=== PATIENT | female | born 1975 | race Caucasian/White ===

== ENCOUNTER 2016-05-08 14:44 | Outpatient (CLI) | payer OTHER ==
[~2016-05-08] VITALS: Ht 149.9 cm; Wt 60.0 kg
[~2016-05-08 14:44] MED LIST: /CIPR75TA OR; CIPRO PO; FLAG500T OR; METHYLCELLULOSE OR; NICO21DI4 TD; SENN8.6T5 OR; VICO5TAB OR; metamucil OR
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
[2016-05-08 17:10] LABS: DIFF SLIDE NUMBER 289
[2016-05-08 17:11] LABS: BASO % 0.2 % (0.0-1.0); EOS # 0.1 K/mm3 (0.0-0.50); EOS % 0.7 % (0.0-3.0); LARGE UNSTAINED CELL # 0.3 K/mm3 (0.0-0.4); LYMPH # 1.5 K/mm3 (1.5-4.5); LYMPH % 10.2 % (24.0-44.0); MEAN CORPUSCULAR HEMOGLOBIN 30.4 pg (27.0-33.0); MEAN CORPUSCULAR HGB CONC 33.1 g/dl (32.0-36.5); MEAN CORPUSCULAR VOLUME 91.7 fl (80.0-96.0); MONO # 0.6 K/mm3 (0.0-0.8); MONO % 4.2 % (0.0-5.0); NEUTROPHILS % 82.8 % (36.0-66.0); PLATELET COUNT, AUTOMATED 378 k/mm3 (150-450); RED CELL DISTRIBUTION WIDTH 13.2 % (11.5-14.5); WHITE BLOOD COUNT 14.5 K/mm3 (4.0-10.0)
[2016-05-08 20:03] VITALS: BP 108/60
[2016-05-08 22:02] VITALS: BP 120/67
[2016-05-09 01:50] VITALS: BP 108/68
[2016-05-09 05:47] VITALS: BP 128/65
== END 2016-05-09 08:55 | disposition home or self-care (01) ==
LOC: M LDO 14:44 → M OBS 20:02 → M LDO 05-09 08:55
PROVIDERS: ATTEND Advanced Practice Midwife
DX: O42.912 Preterm premature rupture of membranes, unspecified as to length of time between rupture and onset of labor, second trimester (principal); O40.2XX0 Polyhydramnios, second trimester, not applicable or unspecified; O09.522 Supervision of elderly multigravida, second trimester; Z88.5 Allergy status to narcotic agent; Z88.8 Allergy status to other drugs, medicaments and biological substances; Z87.891 Personal history of nicotine dependence

== ENCOUNTER 2016-05-11 05:31 | Inpatient (IN) | payer OTHER ==
[~2016-05-11] VITALS: Ht 149.9 cm; Wt 59.0 kg
[2016-05-11] VITALS (10 sets, daily range): BP systolic 101–118; BP diastolic 54–70
[2016-05-11] MEDS ORDERED: BUTORPHANOL 2 MG/ML INJ (J0595) IV ONE ×2 (08:00→11:30)
[2016-05-11] MEDS ORDERED: PROMETHAZINE INJ 25 MG/ML VIAL (J2550) IV ONE ×2 (08:00→11:30)
[2016-05-11 08:49] LABS: BASO % 0.1 % (0.0-1.0); EOS # 0.1 K/mm3 (0.0-0.50); EOS % 0.6 % (0.0-3.0); LARGE UNSTAINED CELL # 0.2 K/mm3 (0.0-0.4); LYMPH # 1.4 K/mm3 (1.5-4.5); LYMPH % 6.1 % (24.0-44.0); MEAN CORPUSCULAR HEMOGLOBIN 30.2 pg (27.0-33.0); MEAN CORPUSCULAR HGB CONC 32.7 g/dl (32.0-36.5); MEAN CORPUSCULAR VOLUME 92.3 fl (80.0-96.0); MONO % 4.8 % (0.0-5.0); NEUTROPHILS # 17.7 K/mm3 (1.8-7.7); NEUTROPHILS % 87.4 % (36.0-66.0); PLATELET COUNT, AUTOMATED 413 k/mm3 (150-450); RED CELL DISTRIBUTION WIDTH 13.4 % (11.5-14.5); WHITE BLOOD COUNT 20.2 K/mm3 (4.0-10.0)
[2016-05-11 08:57] LABS: INR 0.96
[2016-05-11] MEDS ORDERED: PRENATAL VITAMIN TAB PO SCH (09:00)
[2016-05-11] MEDS ORDERED: OXYTOCIN 30 UNITS IN 0.9% NaCl 500ML IV BAG (J2590) As Ordered ONE (12:24)
[2016-05-11] MEDS: OXYTOCIN DRIP 30 UNITS in APPROPRIATE DILUENT 1 EA IV SCH ×2 (12:27→14:18)
[2016-05-11] MEDS ORDERED: AMPICILLIN SOD/SULBACTAM SOD 3 GM in D5W MINI-BAG PLUS 100 ML IV SCH (15:00)
[2016-05-11] MEDS ORDERED: MORPHINE 10 MG/ML 1ML VIAL IV ONE (15:15)
[2016-05-11] MEDS ORDERED: KETOROLAC 60 MG/2 ML VIAL (J1885) As Ordered ONE (16:22)
[2016-05-11] MEDS ORDERED: fentaNYL 100 MCG/2 ML INJECTION (J3010) As Ordered ONE (16:22)
[2016-05-11] MEDS ORDERED: dexameTHASONE 4 MG/ML 1ML VIAL (J1100) As Ordered ONE (16:22)
[2016-05-11] MEDS ORDERED: ONDANSETRON 4MG/2ML VIAL (J2405) As Ordered ONE (16:22)
[2016-05-11] MEDS ORDERED: LIDOCAINE 2% INJ 100 MG/5 ML SYRINGE As Ordered ONE (16:22)
[2016-05-11] MEDS ORDERED: MIDAZOLAM INJ 2 MG/2 ML VIAL (J2250) As Ordered ONE (16:22)
[2016-05-11] MEDS ORDERED: SUCCINYLCHOLINE 100 MG/5 ML SYRINGE (J0330) As Ordered ONE (16:22)
[2016-05-11] MEDS ORDERED: PROPOFOL 200 MG/20 ML VIAL As Ordered ONE (16:22)
[2016-05-11] MEDS ORDERED: PHENYLephrine HCL 500 MCG/5 ML (100MCG/ML) SYRINGE (J2370) As Ordered ONE (16:23)
[2016-05-11] MEDS ORDERED: OXYTOCIN INJ 10 UNITS/ML VIAL (J2590) As Ordered ONE (16:23)
[2016-05-11] MEDS ORDERED: LR 1,000 ML IV SCH ×3 (16:54→17:15)
[2016-05-11] MEDS ORDERED: MEASLES,MUMPS,RUBELLA VACCINE INJ (MMR-II) (90707) SC SCH (17:00)
[2016-05-11] MEDS ORDERED: PROMETHAZINE INJ 25 MG/ML VIAL (J2550) IV PRN (17:00)
[2016-05-11] MEDS ORDERED: ONDANSETRON 4MG/2ML VIAL (J2405) IV PRN ×2 (17:00→17:15)
[2016-05-11] MEDS ORDERED: DOCUSATE SODIUM 100 MG CAP PO PRN (17:00)
[2016-05-11] MEDS ORDERED: METHYLERGONOVINE MALEATE 0.2 MG TAB PO PRN (17:00)
[2016-05-11] MEDS ORDERED: PERCOCET 5MG/325MG TAB PO PRN ×2 (17:00)
[2016-05-11] MEDS ORDERED: RHOGAM 300 MCG (1500 IU) INJ (J2790) IM SCH (17:00)
[2016-05-11] MEDS ORDERED: MEPERIDINE INJ 25 MG/ML VIAL (J2175) IV PRN (17:15)
[2016-05-11] MEDS ORDERED: fentaNYL 100 MCG/2 ML INJECTION (J3010) IV PRN (17:15)
[2016-05-11] MEDS ORDERED: NALBUPHINE HCL 10 MG/ML AMP (J2300) IV PRN (17:15)
[2016-05-11] MEDS: AMPICILLIN SOD/SULBACTAM SOD 3 GM in D5W MINI-BAG PLUS 100 ML IV SCH (21:02)
[2016-05-11] MEDS: KETOROLAC 30 MG/ML VIAL (J1885) IV SCH (21:57)
[2016-05-12] MEDS: AMPICILLIN SOD/SULBACTAM SOD 3 GM in D5W MINI-BAG PLUS 100 ML IV SCH (03:01)
[2016-05-12] MEDS: KETOROLAC 30 MG/ML VIAL (J1885) IV SCH (04:00)
--- NOTE | 2016-05-12 06:44 | RO ---
DATE OF PROCEDURE: 05/11/2016 PREOPERATIVE DIAGNOSES: 1. Retained placenta. 2. hemorrhage (500 mL estimated blood loss). 3. Status post previable at 21 +2 weeks. 4. Chorioamnionitis. POSTOPERATIVE DIAGNOSES: 1. Retained placenta. 2. hemorrhage (500 mL estimated blood loss). 3. Status post previable at 21 +2 weeks. 4. Chorioamnionitis. PROCEDURE: 1. Instrument extraction of retained placenta. 2. Suction, dilation and curettage. SURGEON: Dhaval Godoy DO CUSTOMER ASSISTANT: Gabriella Dixon CNM ANESTHESIA: General endotracheal. SPECIMEN SENT TO PATHOLOGY: Large fragments of placenta. ESTIMATED BLOOD LOSS: 500 mL. FLUIDS REPLACED: 1 liter lactated Ringer's. DRAINS: 500 mL urine output via in-and-out catheter. COMPLICATIONS: None. IV UTEROTONICS: Pitocin 30 units in 1 liter of normal saline. PREOPERATIVE ANTIBIOTICS: Unasyn 3 grams IV times one. INTRAOPERATIVE FINDINGS: 1. Placenta removed in large fragments. 2. At the conclusion of the case, a there was a thin homogeneous endometrial stripe via transabdominal sonography. The endometrial stripe was followed from the fundus to the cervix. Pest Control Worker Helper images were printed and placed in the patient's chart. INDICATION: The patient is a 41-year-old, (G) 4, now para (P) 3-1-0-3. She was admitted at 21 weeks and 2 days with a diagnosis of previable, prelabor, rupture of membranes dating back to the original ROM date of 05/01/2016. She was undergoing expectant management and arrived to the hospital earlier today with a complaint of persistent, frequent uterine contractions. She denied any fever or vaginal bleeding at the time of her initial presentation. Her vitals were normal/stable, afebrile. As the period of observation ensued, the patient continued to have significant uterine cramping requiring IV pain medications. This prompted a sterile speculum exam. The sterile speculum exam revealed that the head and shoulders were slightly beyond the cervical os. The cervix was noted to be about 4-5 cm dilated. No brisk bleeding was noted. However, the patient did have pink frothy discharge. Given this finding, the patient was offered augmentation of labor given that delivery was inevitable and imminent. Patient desired to expedite delivery. IV Pitocin was administered. Shortly thereafter, the baby delivered with ease with no dystocia. The third stage of labor was complicated by a retained placenta. After an initial effort to actively manage the third stage of labor via Pitocin administration and light traction on the cord, the placenta did not deliver. We proceeded for another hour and half with expectant management. After two hours from delivery, there was no delivery of the placenta. The patient was given IV pain medications. A sterile speculum was placed into the vagina while the patient was in the low lithotomy position. The placenta was noted to be at the level of the cervix. Bierer forceps were placed transcervically under ultrasound guidance to grasp the placenta and to attempt to remove it. The patient did not tolerate this attempt. Her pain level was intolerable. The patient requested that I stop proceeding while she could feel pain. She requested to go under anesthesia for the remainder of the removal of the placenta. I counseled the patient on risks, benefits, indications, alternatives of curettage and instrument extraction of the placenta under anesthesia and the patient agreed to proceed in that fashion. Informed consent was obtained. DESCRIPTION OF PROCEDURE: The patient was urgently transferred to the main operating room (OR) with an IV running. A low level bleeding was noted at this point. The patient had only lost about 100 mL of blood. She was transferred to the main OR room, placed on operating table in dorsal supine position where general anesthesia was administered without any difficulty. She was placed in a high lithotomy position. Time-out was performed per protocol. She was prepared and draped in normal sterile fashion. The bladder was drained with a sterile in-and-out catheter. An Auvard weighted speculum was placed in the posterior vagina. A Mcmahon retractor was placed in the anterior vagina with good visualization of the cervix. The anterior lip of the cervix was grasped with ring forceps and downward traction was applied. Another pair of ring forceps was used to grasp the placenta and downward traction was applied. The placenta started to be removed and it started to detach from the uterus. The large placental chunks were removed with the ring forceps until it was felt that the entire placenta had been removed. Once this was accomplished, a bimanual massage was performed and intrauterine sweep was performed and I could not palpate any large chunks of placenta. A transabdominal ultrasound was performed to confirm the entire removal of the placenta. The transabdominal sonography revealed a thin homogeneous endometrial stripe from fundus to cervix. There was no evidence of retained products of conception. There was brisk bleeding from the uterus at this point. The uterus was noted to be slightly atonic. Uterotonics via IV Pitocin was administered by Dr. Lopez. After allowing the uterotonics some time to take effect, the uterine tone improved and uterine bleeding significantly improved. The cervix was inspected and noted to be completely intact and hemostatic. A size #7 Vacurette was placed transcervically into the intrauterine cavity and suction was applied with minimal tissue and blood return. The Vacurette was removed. Minimal bleeding from the cervical os was noted. All instruments had been removed from the vagina. Sponge, lap, needle and instrument counts were correct. The patient tolerated the entire procedure well. She was transferred to the postanesthesia care unit (PACU) in good and stable condition. CLEO
[2016-05-12 07:30] LABS: BASO % 0.1 % (0.0-1.0); EOS # 0.1 K/mm3 (0.0-0.50); EOS % 0.6 % (0.0-3.0); LARGE UNSTAINED CELL # 0.2 K/mm3 (0.0-0.4); LARGE UNSTAINED CELL % 1.1 % (0.0-4.0); LYMPH # 1.9 K/mm3 (1.5-4.5); LYMPH % 11.2 % (24.0-44.0); MEAN CORPUSCULAR HEMOGLOBIN 30.4 pg (27.0-33.0); MEAN CORPUSCULAR HGB CONC 32.6 g/dl (32.0-36.5); MEAN CORPUSCULAR VOLUME 93.3 fl (80.0-96.0); MONO # 0.6 K/mm3 (0.0-0.8); MONO % 3.9 % (0.0-5.0); NEUTROPHILS # 12.8 K/mm3 (1.8-7.7); NEUTROPHILS % 82.9 % (36.0-66.0); PLATELET COUNT, AUTOMATED 371 k/mm3 (150-450); RED CELL DISTRIBUTION WIDTH 13.6 % (11.5-14.5); WHITE BLOOD COUNT 15.4 K/mm3 (4.0-10.0)
[2016-05-12] MEDS ORDERED: IBUP-1114 PO (08:17)
--- NOTE | 2016-05-12 08:17 | DSES ---
DATE OF ADMISSION: 05/11/2016 DATE OF DISCHARGE: 05/12/2016 DISCHARGE DIAGNOSIS: premature rupture of membranes (PPROM) and spontaneous vaginal delivery of previable fetus at 21-2/7 weeks gestation, stable condition. day #1. HISTORY: Leah is a 41-year-old 4, para 3-1-0-3 who was admitted to labor and delivery with prior diagnosis of PPROM at 19-1/7 weeks gestation. Expectant management had been employed and she arrived to labor and delivery with progression to active labor approximately 4 cm dilated. Her labor was augmented with IV Pitocin and she delivered a female on 05/11/2016 at 1328 weighing 362 grams. Comfort care was provided immediately to the previable . Time of was 1716 on 05/11/2016. She did undergo a dilation and curettage (D C) for retained placenta in the main operating room, surgeon Dr. Alfred Godoy. There is a notation of her having a temperature of 100.6 temporal which is actually 99.6 temperature. She was given several doses of Unasyn and has been afebrile for the majority of her admission. PLAN: Per consult with Dr. Fuentes, he has recommended the patient be discharged home today. I did review discharge instructions that included breast care, michi care, activity and lifting, access to care, pelvic rest and danger signs to report. She currently has an appointment at the center tomorrow on 05/13/2016 and plans on keeping that appointment. I did recommend that she follow up with [facility] for 2-week visit as well as a 6-week visit or she may continue her care at the center. medications just include [id number] ibuprofen 800 mg by mouth every 8 hours for pain and discomfort. The patient is in agreement and all of her questions were answered. CLEO
[2016-05-13] MEDS ORDERED: IBUPROFEN 800 MG TAB PO SCH
== END 2016-05-12 09:30 | disposition home or self-care (01) | DRG 767 ==
LOC: M LDO 05:31 → M LDI 11:48
PROVIDERS: ADMIT Obstetrics & Gynecology; ATTEND Obstetrics & Gynecology
PROC: 10E0XZZ Delivery of Products of Conception, External Approach (ICD-10-PCS; 2016-05-11)
PROC: 10D17ZZ Extraction of Products of Conception, Retained, Via Natural or Artificial Opening (ICD-10-PCS; principal; 2016-05-11 15:40)
DX: O60.12X0 Preterm labor second trimester with preterm delivery second trimester, not applicable or unspecified (principal); O41.1220 Chorioamnionitis, second trimester, not applicable or unspecified; O72.2 Delayed and secondary postpartum hemorrhage; Z37.0 Single live birth; Z3A.21 21 weeks gestation of pregnancy; O09.522 Supervision of elderly multigravida, second trimester; O42.112 Preterm premature rupture of membranes, onset of labor more than 24 hours following rupture, second trimester

== ENCOUNTER 2018-01-03 13:05 | Emergency (ER) | payer OTHER ==
[2018-01-03 14:20] LABS: BASO # 0.1 10^3/uL (0.0-0.2); BASO % 0.6 % (0.0-1.0); EOS # 0.1 10^3/uL (0.0-0.50); EOS % 1.4 % (0.0-3.0); HEMOGLOBIN 13.5 g/dl (12.0-15.5); IMMATURE GRANULOCYTE % 0.5 % (0-3.0); LYMPH # 2.1 10^3/uL (1.5-4.5); LYMPH % 24.3 % (24.0-44.0); MEAN CORPUSCULAR HEMOGLOBIN 27.6 pg (27.0-33.0); MEAN CORPUSCULAR HGB CONC 32.1 g/dl (32.0-36.5); MEAN CORPUSCULAR VOLUME 85.9 fl (80.0-96.0); MONO # 0.7 10^3/uL (0.0-0.8); MONO % 8.1 % (0.0-5.0); NEUTROPHILS # 5.5 10^3/uL (1.8-7.7); NEUTROPHILS % 65.1 % (36.0-66.0); PLATELET COUNT, AUTOMATED 487 10^3/uL (150-450); RED BLOOD COUNT 4.89 10^6/uL (4.00-5.40); RED CELL DISTRIBUTION WIDTH 14.6 % (11.5-14.5); WHITE BLOOD COUNT 8.4 10^3/uL (4.0-10.0)
[2018-01-03 14:26] LABS: ANION GAP 7 MEQ/L (8-16); BLOOD UREA NITROGEN 8 MG/DL (7-18); CALCIUM LEVEL 9.1 MG/DL (8.5-10.1); CARBON DIOXIDE LEVEL 27 MEQ/L (21-32); CHLORIDE LEVEL 107 MEQ/L (98-107); CPK CREATINE PHOSPHOKINASE 113 U/L (26-192); CREATININE FOR GFR 0.73 MG/DL (0.55-1.30); GLOMERULAR FILTRATION RATE > 60.0 (>58); GLUCOSE, FASTING 92 MG/DL (70-100); MB/CK RELATIVE INDEX 0.97 (< OR =4); POTASSIUM SERUM 4.1 MEQ/L (3.5-5.1); SODIUM LEVEL 141 MEQ/L (136-145); THYROID STIMULATING HORMONE 0.528 uIU/ML (0.358-3.740); TROPONIN I < 0.02 NG/ML (< 0.10)
[2018-01-03 15:12] LABS: ESTIMATED AVERAGE GLUCOSE 114 MG/DL (60-110); HEMOGLOBIN A1c 5.6 %
== END 2018-01-03 16:08 | disposition home or self-care (01) ==
LOC: M ED 13:05
DX: R07.89 Other chest pain (principal); F41.0 Panic disorder [episodic paroxysmal anxiety]
CPT/HCPCS: 71045

== ENCOUNTER → 2018-09-30 | Outpatient (REF) | payer OTHER ==
[~2018-09-30] MED LIST changes: +IBUP-1114 PO
[2018-10-06 14:31] LABS: HPV HYBRID CAPTURE II Negative (Negative)
== END ==
LOC: M LAB LCGH 13:06
PROVIDERS: ATTEND Family Medicine
DX: Z12.4 Encounter for screening for malignant neoplasm of cervix (principal)

== ENCOUNTER → 2019-12-29 | Outpatient (CLI) | payer BC ==
--- NOTE | 2019-12-30 10:54 | REPMRS ---
Patient History The patient states she had a clinical breast exam in 12/2018 No known family history of cancer. 3D TOMOSYNTHESIS WAS PERFORMED. [facility] lifetime risk for breast cancer is 9.4%. Volpara breast density b. Digital Woman Screen Mammo: December 29, 2019 - Exam #: [id number] Bilateral CC and MLO view(s) were taken. Technologist: Gala Hamilton, Technologist Prior study comparison: 2013, bilateral digital mammo screening bilat, performed at [facility]. FINDINGS: There are scattered fibroglandular densities. There has been no change in the appearance of the mammogram from the prior studies. There is a mild amount of residual fibroglandular tissue which is fairly symmetric. There is no interval development of dominant mass, architectural distortion, or clustered microcalcification suggestive of malignancy. Assessment: BI-RADS/ACR category 1 mammogram. Negative Mammogram. Recommendation Routine screening mammogram in 1 year (for women over age 40). This mammogram was interpreted with the aid of an FDA-approved computer-aided dectection system. Electronically Signed By: Dayo Forbes MD 12/30/19 [id number]
== END ==
LOC: M WHC 09:02
PROVIDERS: ATTEND Plastic Surgery Surgery of the Hand
DX: Z12.31 Encounter for screening mammogram for malignant neoplasm of breast (principal); N62 Hypertrophy of breast

== ENCOUNTER 2020-04-01 12:39 | Emergency (ER) | payer BC ==
[~2020-04-01] VITALS: Ht 149.9 cm; Wt 61.9 kg
--- OUTSIDE RECORDS SUMMARY | 2020-04-01 12:45 | CCD | Continuity of Care Document ---
Author Author Leah BECKER PA-C Organization Unknown Address [address] [place] [address] Phone [phone] Care Team Providers Care Library Media Specialist Name Role Phone Iraida Ford [phone] Problems Description No Information Available Social History Type Date Description Comments Sex Unknown ETOH Use Denies alcohol use Tobacco Use Start: Unknown End: Unknown Patient is a former smoker quit 11/2014 Recreational Drug Use Denies Drug Use Exercise Type/Frequency Does not exercise NACHO: 09/19/2016 Estimated Date of Delivery Based on Final NACHO Allergies, Adverse Reactions, Alerts Active Allergies Reaction Severity Comments Date NKDA 01/21/2016 NKFA 02/18/2016 NKEA 02/18/2016 Medications Active Medications SIG Qnty Indications Ordering Provide r Date Amoxicillin 500mg Capsules 2 caps by mouth every 8 hours x 5 days 42caps H65.191 Vinicio Becker PA-C 10/2019 Butalbital/Acetaminophen/Caffeine 50-300-40mg Capsules one tab by mouth Q 6 hrs prn 30caps Yeny Cano M.D. 03/11/2016 Vitamin Tablets 1 by mouth every day Unknown Claritin 10 MG 1 tab po daily Unknown Immunizations Description No Information Available Vital Signs Date Vital Result Comment 01/18/2020 12:15pm Heart Rate 70 /min Body Temperature 97.8 F Respiratory Rate 18 /min O2 % BldC Oximetry 94 % 04/18/2016 1:11pm BP Systolic 126 mmHg BP Diastolic 80 mmHg Heart Rate 93 /min Weight 140.00 lb Weight 63.504 kg Height 60 inches 5'0" BMI (Body Mass Index) 27.3 kg/m2 BSA (Body Surface Area) 1.60 m2 Results Description No Information Available Procedures Description No Information Available Medical Devices Description No Information Available Encounters Description No Information Available Assessments Description No Information Available Plan of Treatment No Information Available Functional Status Description No Information Available Mental Status Description No Information Available Referrals Description No Information Available
--- OUTSIDE RECORDS SUMMARY | 2020-04-01 12:45 | CCD ---
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 Unavailable Unavailable Garcia II, Vonda White M.D. Unavailable Unavailable Garcia II, Vonda White M.D. Unavailable Unavailable Garcia II, Vonda White M.D. Unavailable Unavailable Garcia II, Vonda White M.D. Unavailable Unavailable Garcia II, Vonda White M.D. Unavailable Unavailable Garcia II, Vonda White M.D. Unavailable Unavailable Garcia II, Vonda White M.D. Unavailable Unavailable Garcia II, A Christopher Hatfield Unavailable Unavailable Garcia II, A Christopher Hatfield Unavailable Unavailable Garcia II, A Christopher Hatfield Unavailable Unavailable Garcia II, A Christopher Hatfield Unavailable Unavailable Garcia II, A Christopher Hatfield Unavailable Unavailable Garcia II, A Christopher Hatfield Unavailable Unavailable Garcia II, A Christopher Hatfield Unavailable Unavailable Garcia II, A Christopher Hatfield Unavailable Unavailable Garcia II, A Christopher Hatfield Unavailable Unavailable Garcia II, A Christopher Hatfield Unavailable Unavailable Garcia II, A Christopher Hatfield Unavailable Unavailable Garcia II, A Christopher Hatfield Unavailable Unavailable Garcia II, A Christopher Hatfield Unavailable Unavailable Garcia II, A Christopher Hatfield Unavailable Unavailable Garcia II, A Christopher Hatifeld Unavailable Unavailable Garcia II, A Christopher Hatfield Unavailable Unavailable Garcia II, A Christopher Hatfield Unavailable Unavailable Garcia II, A Christopher Hatfield Unavailable Unavailable Garcia II, A Christopher Hatfield Unavailable Unavailable Garcia II, A Christopher Hatfield Unavailable Unavailable Garcia II, A Christopher Hatfield Unavailable Unavailable Garcia II, A Christopher Hatfield Unavailable Unavailable Garcia II, A Christopher Hatfield Unavailable Unavailable Garcia II, A Christopher Hatfield Unavailable Unavailable Garcia II, A Christopher Hatfield Unavailable Unavailable Garcia II, A Christopher Hatfield Unavailable Unavailable Garcia II, A Christopher Hatfield Unavailable Unavailable Garcia II, A Christopher Hatfield Unavailable Unavailable Garcia II, A Christopher Hatfield Unavailable Unavailable Garcia II, A Christopher Hatfield Unavailable Unavailable Garcia II, A Christopher Hatfield Unavailable Unavailable Garcia II, A Christopher Hatfield Unavailable Unavailable Garcia II, A Christopher Hatfield Unavailable Unavailable Garcia II, A Christopher Hatfield Unavailable Unavailable Garcia II, A Christopher Hatfield Unavailable Unavailable Garcia II, A Christopher Hatfield Unavailable Unavailable Garcia II, A Christopher Hatfield Unavailable Unavailable Garcia II, A Christopher Hatfield Unavailable Unavailable Garcia II, Vonda White M.D. Unavailable Unavailable Garcia II, Vonda White M.D. Unavailable Unavailable Garcia II, Vonda White M.D. Unavailable Unavailable Garcia II, Vonda White M.D. Unavailable Unavailable Garcia II, Vonda White M.D. Unavailable Unavailable Garcia II, Vonda White M.D. Unavailable Unavailable Garcia II, Vonda White M.D. Unavailable Unavailable Garcia II, Vonda White M.D. Unavailable Unavailable Garcia II, Vonda White M.D. Unavailable Unavailable Shambo, Cody Ortega MD Unavailable Unavailable Shambo, Cody Ortega MD Unavailable Unavailable Shambo, Cody Ortega MD Unavailable Unavailable Shambo, Cody Ortega MD Unavailable Unavailable Shambo, Cody Ortega MD Unavailable Unavailable Shambo, Cody Ortega MD Unavailable Unavailable Shambo, Cody Ortega MD Unavailable Unavailable Shambo, Cody Ortega MD Unavailable Unavailable Shambo, Cody Ortega MD Unavailable Unavailable Shambo, Cody Ortega MD Unavailable Unavailable Shambo, Cody Ortega MD Unavailable Unavailable Shambo, Cody Ortega MD Unavailable Unavailable Shambo, Cody Ortega MD Unavailable Unavailable Shambo, Cody Ortega MD Unavailable Unavailable Shambo, Cody Ortega MD Unavailable Unavailable Shambo, Cody Ortega MD Unavailable Unavailable Shambo, Cody Ortega MD Unavailable Unavailable Shambo, Cody Ortega MD Unavailable Unavailable Shambo, Cody Ortega MD Unavailable Unavailable Shambo, Cody Ortega MD Unavailable Unavailable Shambo, Cody Ortega MD Unavailable Unavailable Shambo, Cody Ortega MD Unavailable Unavailable Shambo, Cody Ortega MD Unavailable Unavailable Shambo, Cody Ortega MD Unavailable Unavailable Shambo, Cody Ortega MD Unavailable Unavailable Shambo, Cody Ortega MD Unavailable Unavailable Shambo, Cody Ortega MD Unavailable Unavailable Shambo, Cody Ortega MD Unavailable Unavailable Shambo, Cody Ortega MD Unavailable Unavailable Shambo, Cody Ortega MD Unavailable Unavailable Shambo, Cody Ortega MD Unavailable Unavailable Shambo, Cody Ortega MD Unavailable Unavailable Shambo, Cody Ortega MD Unavailable Unavailable Shambo, Cody Ortega MD Unavailable Unavailable Shambo, Cody Ortega MD Unavailable Unavailable Shambo, Cody Ortega MD Unavailable Unavailable Shambo, Cody Ortega MD Unavailable Unavailable Shambo, Cody Ortega MD Unavailable Unavailable Shambo, Cody Ortega MD Unavailable Unavailable Shambo, Cody Ortega MD Unavailable Unavailable Shambo, Cody Ortega MD Unavailable Unavailable Shambo, Cody Ortega MD Unavailable Unavailable Shambo, Cody Ortega MD Unavailable Unavailable Shambo, Cody Ortega MD Unavailable Unavailable Shambo, Cody Ortega MD Unavailable Unavailable Shambo, Cody Ortega MD Unavailable Unavailable Shambo, Cody Ortega MD Unavailable Unavailable Shambo, Cody Ortega MD Unavailable Unavailable Shambo, Cody Ortega MD Unavailable Unavailable Shambo, Cody Ortega MD Unavailable Unavailable Shambo, Cody Ortega MD Unavailable Unavailable Shambo, Cody Ortega MD Unavailable Unavailable Shambo, Cody Ortega MD Unavailable Unavailable Shambo, Cody Ortega MD Unavailable Unavailable Shambo, Cody Ortega MD Unavailable Unavailable Shambo, Cody Ortega MD Unavailable Unavailable Shambo, Cody Ortega MD Unavailable Unavailable Shambo, Cody Ortega MD Unavailable Unavailable Shambo, Cody Ortega MD Unavailable Unavailable Shambo, Cody Ortega MD Unavailable Unavailable Shambo, Cody Ortega MD Unavailable Unavailable Shambo, Cody Ortega MD Unavailable Unavailable Shambo, Cody Ortega MD Unavailable Unavailable Shambo, Cody Ortega MD Unavailable Unavailable Kendra RG MD Unavailable Unavailable Kendra RG MD Unavailable Unavailable Kendra RG MD Unavailable Unavailable Kendra RG MD Unavailable Unavailable Kendra RG MD Unavailable Unavailable Kendra RG MD Unavailable Unavailable Kendra RG MD Unavailable Unavailable Kendra RG MD Unavailable Unavailable Kendra RG MD Unavailable Unavailable Kendra RG MD Unavailable Unavailable Kendra RG MD Unavailable Unavailable Kendra RG MD Unavailable Unavailable Kendra RG MD Unavailable Unavailable Kendra RG MD Unavailable Unavailable Kendra RG MD Unavailable Unavailable Kendra RG MD Unavailable Unavailable Kendra RG MD Unavailable Unavailable Kendra RG MD Unavailable Unavailable Kendra RG MD Unavailable Unavailable Kendra RG MD Unavailable Unavailable Kendra RG MD Unavailable Unavailable Kendra RG MD Unavailable Unavailable Kendra RG MD Unavailable Unavailable Kendra RG MD Unavailable Unavailable Kendra RG MD Unavailable Unavailable Kendra RG MD Unavailable Unavailable Kendra RG MD Unavailable Unavailable Logan, L Iraida PA Unavailable Unavailable Logan, L Iraida PA Unavailable Unavailable Logan, L Iraida PA Unavailable Unavailable Logan, L Iraida PA Unavailable Unavailable Logan, L Iraida PA Unavailable Unavailable Logan, L Iraida PA Unavailable Unavailable Logan, L Iraida PA Unavailable Unavailable Logan, L Iraida PA Unavailable Unavailable Logan, L Iraida PA Unavailable Unavailable Logan, L Iraida PA Unavailable Unavailable Logan, L Iraida PA Unavailable Unavailable Logan, L Iraida PA Unavailable Unavailable Logan, L Iraida PA Unavailable Unavailable Logan, L Iraida PA Unavailable Unavailable Logan, L Iraida PA Unavailable Unavailable Logan, L Iraida PA Unavailable Unavailable Logan, L Iraida PA Unavailable Unavailable Logan, L Iraida PA Unavailable Unavailable Logan, L Iraida PA Unavailable Unavailable Logan, L Iraida PA Unavailable Unavailable Logan, L Iraida PA Unavailable Unavailable Logan, L Iraida PA Unavailable Unavailable Logan, L Iraida PA Unavailable Unavailable Logan, L Iraida PA Unavailable Unavailable Logan, L Iraida PA Unavailable Unavailable Logan, L Iraida PA Unavailable Unavailable Logan, L Iraida PA Unavailable Unavailable Logan, L Iraida PA Unavailable Unavailable Logan, L Iraida PA Unavailable Unavailable Logan, L Iraida PA Unavailable Unavailable Logan, L Iraida PA Unavailable Unavailable Logan, L Iraida PA Unavailable Unavailable Logan, L Iraida PA Unavailable Unavailable Logan, L Iraida PA Unavailable Unavailable Logan, L Iraida PA Unavailable Unavailable Logan, L Iraida PA Unavailable Unavailable Logan, L Iraida PA Unavailable Unavailable Logan, L Iraida PA Unavailable Unavailable Logan, L Iraida PA Unavailable Unavailable Logan, L Iraida PA Unavailable Unavailable Logan, L Iraida PA Unavailable Unavailable Logan, L Iraida PA Unavailable Unavailable Logan, L Iraida PA Unavailable Unavailable Logan, L Iraida PA Unavailable Unavailable Logan, L Iraida PA Unavailable Unavailable Logan, L Iraida PA Unavailable Unavailable Logan, L Iraida PA Unavailable Unavailable Logan, L Iraida PA Unavailable Unavailable Logan, L Iraida PA Unavailable Unavailable Logan, L Iraida PA Unavailable Unavailable Logan, L Iraida PA Unavailable Unavailable Logan, L Iraida PA Unavailable Unavailable Logan, L Iraida PA Unavailable Unavailable Logan, L Iraida PA Unavailable Unavailable Logan, L Iraida PA Unavailable Unavailable Logan, L Iraida PA Unavailable Unavailable Logan, L Iraida PA Unavailable Unavailable Logan, L Iraida PA Unavailable Unavailable Logan, L Iraida PA Unavailable Unavailable Logan, L Iraida PA Unavailable Unavailable Logan, L Iraida PA Unavailable Unavailable Logan, L Iraida PA Unavailable Unavailable ZEGIL, D MARCELINO COMMISSIONING SPECIALIST Unavailable Unavailable ZEGIL, Antonio MARCELINO COMMISSIONING SPECIALIST Unavailable Unavailable ZEGIL, Antonio MARCELINO COMMISSIONING SPECIALIST Unavailable Unavailable KOPIDLANSKY, Donita IBARRA COMMERCIAL REAL ESTATE UNDERWRITER-COMMISSIONING SPECIALIST-C Unavailable Unava ilable KOPIDLANSKY, Donita IBARRA COMMERCIAL REAL ESTATE UNDERWRITER-COMMISSIONING SPECIALIST-C Unavailable Unava ilable KOPIDLANSKY, Donita IBARRA COMMERCIAL REAL ESTATE UNDERWRITER-COMMISSIONING SPECIALIST-C Unavailable Unava ilable KOPIDLANSKY, Donita IBARRA COMMERCIAL REAL ESTATE UNDERWRITER-COMMISSIONING SPECIALIST-C Unavailable Unava ilable KOPIDLANSKY, Donita IBARRA COMMERCIAL REAL ESTATE UNDERWRITER-COMMISSIONING SPECIALIST-C Unavailable Unava ilable KOPIDLANSKY, Donita IBARRA APRN-COMMISSIONING SPECIALIST-C Unavailable Unava ilable KOPIDLANSKY, Donita IBARRA APRN-COMMISSIONING SPECIALIST-C Unavailable Unava ilable KOPIDLANSKY, Donita IBARRA APRN-COMMISSIONING SPECIALIST-C Unavailable Unava ilable KOPIDLANSKY, Donita IBARRA COMMERCIAL REAL ESTATE UNDERWRITER-COMMISSIONING SPECIALIST-C Unavailable Unava ilable KOPIDLANSKY, Donita IBARRA APRN-COMMISSIONING SPECIALIST-C Unavailable Unava ilable KOPIDLANSKY, Donita IBARRA COMMERCIAL REAL ESTATE UNDERWRITER-COMMISSIONING SPECIALIST-C Unavailable Unava ilable KOPIDLANSKY, Donita IBARRA APRN-COMMISSIONING SPECIALIST-C Unavailable Unava ilable KOPIDLANSKY, Donita IBARRA COMMERCIAL REAL ESTATE UNDERWRITER-COMMISSIONING SPECIALIST-C Unavailable Unava ilable KOPIDLANSKY, Donita IBARRA COMMERCIAL REAL ESTATE UNDERWRITER-COMMISSIONING SPECIALIST-C Unavailable Unava ilable KOPIDLANSKY, Donita IBARRA COMMERCIAL REAL ESTATE UNDERWRITER-COMMISSIONING SPECIALIST-C Unavailable Unava ilable KOPIDLANSKY, Donita IBARRA COMMERCIAL REAL ESTATE UNDERWRITER-COMMISSIONING SPECIALIST-C Unavailable Unava ilable KOPIDLANSKY, R FRED COMMERCIAL REAL ESTATE UNDERWRITER-COMMISSIONING SPECIALIST-C Unavailable Unava ilable KOPIDLANSKY, Donita IBARRA COMMERCIAL REAL ESTATE UNDERWRITER-COMMISSIONING SPECIALIST-C Unavailable Unava ilable KOPIDLANSKY, Donita IBARRA COMMERCIAL REAL ESTATE UNDERWRITER-COMMISSIONING SPECIALIST-C Unavailable Unava ilable KOPIDLANSKY, R FRED COMMERCIAL REAL ESTATE UNDERWRITER-COMMISSIONING SPECIALIST-C Unavailable Unava ilable KOPIDLANSKY, R FRED COMMERCIAL REAL ESTATE UNDERWRITER-COMMISSIONING SPECIALIST-C Unavailable Unava ilable KOPIDLANSKY, Donita IBARRA COMMERCIAL REAL ESTATE UNDERWRITER-COMMISSIONING SPECIALIST-C Unavailable Unava ilable KOPIDLANSKY, R FRED COMMERCIAL REAL ESTATE UNDERWRITER-COMMISSIONING SPECIALIST-C Unavailable Unava ilable Birchenough, R Shantal DO Unavailable Unavailable Birchenough, R Shantal DO Unavailable Unavailable Birchenough, R Shantal DO Unavailable Unavailable Birchenough, R Shantal DO Unavailable Unavailable Birchenough, R Shantal DO Unavailable Unavailable Birchenough, R Shantal DO Unavailable Unavailable Birchenough, R Shantal DO Unavailable Unavailable Birchenough, R Shantal DO Unavailable Unavailable Birchenough, R Shantal DO Unavailable Unavailable Birchenough, R Shantal DO Unavailable Unavailable Birchenough, R Shantal DO Unavailable Unavailable Birchenough, R Shantal DO Unavailable Unavailable Birchenough, R Shantal DO Unavailable Unavailable Birchenough, R Shantal DO Unavailable Unavailable Carly Hendrix MD Unavailable Unavailable Carly Hendrix MD Unavailable Unavailable Carly Hendrix MD Unavailable Unavailable Carly Hendrix MD Unavailable Unavailable Carly Hendrix MD Unavailable Unavailable Carly Hendrix MD Unavailable Unavailable Carly Hendrix MD Unavailable Unavailable Carly Hendrix MD Unavailable Unavailable Carly Hendrix MD Unavailable Unavailable Carly Hendrix MD Unavailable Unavailable Carly Hendrix MD Unavailable Unavailable Carly Hendrix MD Unavailable Unavailable Carly Hendrix MD Unavailable Unavailable Carly Hendrix MD Unavailable Unavailable Carly Hendrix MD Unavailable Unavailable Carly Hendrix MD Unavailable Unavailable Carly Hendrix MD Unavailable Unavailable Carly Hendrix MD Unavailable Unavailable Carly Hendrix MD Unavailable Unavailable Carly Hendrix MD Unavailable Unavailable Hendrix, E Lyndsey MD Unavailable Unavailable Hendrix, E Lyndsey MD Unavailable Unavailable Hendrix, E Lyndsey MD Unavailable Unavailable Hendrix, E Lyndsey MD Unavailable Unavailable Hendrix, E Lyndsey MD Unavailable Unavailable Hendrix, E Lyndsey MD Unavailable Unavailable Hendrix, E Lyndsey MD Unavailable Unavailable Hendrix, E Lyndsey MD Unavailable Unavailable Hendrix, E Lyndsey MD Unavailable Unavailable Hendrix, E Lyndsey MD Unavailable Unavailable Hendrix, E Lyndsey MD Unavailable Unavailable Hendrix, E Lyndsey MD Unavailable Unavailable Hendrix, E Lyndsey MD Unavailable Unavailable Hendrix, E Lyndsey MD Unavailable Unavailable Hendrix, E Lyndsey MD Unavailable Unavailable Hendrix, E Lyndsey MD Unavailable Unavailable Hendrix, E Lyndsey MD Unavailable Unavailable Hendrix, E Lyndsey MD Unavailable Unavailable Hendrix, E Lyndsey MD Unavailable Unavailable Hendrix, E Lyndsey MD Unavailable Unavailable Re-disclosure Warning The records that you are about to access may contain information from federally-assisted alcohol or drug abuse programs. If such information is present, then the following federally mandated warning applies: This information has been disclosed to you from records protected by federal confidentiality rules (42 CFR part 2). The federal rules prohibit you from making any further disclosure of this information unless further disclosure is expressly permitted by the written consent of the person to whom it pertains or as otherwise permitted by 42 CFR part 2. A general authorization for the release of medical or other information is NOT sufficient for this purpose. The Federal rules restrict any use of the information to criminally investigate or prosecute any alcohol or drug abuse patient.The records that you are about to access may contain highly sensitive health information, the redisclosure of which is protected by Article 27-F of the [facility] Public Health law. If you continue you may have access to information: Regarding HIV / AIDS; Provided by facilities licensed or operated by the [facility] Office of Mental Health; or Provided by the [facility] Office for People With Developmental Disabilities. If such information is present, then the following [facility] mandated warning applies: This information has been disclosed to you from confidential records which are protected by state law. State law prohibits you from making any further disclosure of this information without the specific written consent of the person to whom it pertains, or as otherwise permitted by law. Any unauthorized further disclosure in violation of state law may result in a fine or custodial sentence or both. A general authorization for the release of medical or other information is NOT sufficient authorization for further disc losure. Allergies and Adverse Reactions Type Description Substance Reaction Status Data Source(s ) No Known Drug Allergies No Known Drug Allergies <OTHER> [facility] Drug allergy ceftriaxone ceftriaxone Hives [place] [facility] Drug allergy codeine Codeine Rash [place] [facility] Drug allergy sucralfate sucralfate Hives [place] [facility] Encounters Encounter Providers Location Date Indications Data Source(s ) Outpatient Attender: Lyndsey Hendrix MD 03/21/2020 09:19:[address] [facility] Outpatient Attender: Vinicio PERLA Attender: BARBARA RG MDConsultant: Iraida PERLA 01/18/2020 12:02:00 PM [facility] - 01/18/2020 12:02 :00 PM [facility] Outpatient Attender: Vinicio PERLA Attender: BARBARA RG MDConsultant: Iraida PERLA 01/18/2020 11:30:00 AM [facility] - 01/18/2020 11:30 :00 AM [facility] Outpatient Attender: Jordan Montana MDReferrer: Jordan Montana MD 11/24/2019 09:14:00 AM EDT [facility] Outpatient Attender: FRED SANTOS COMMERCIAL REAL ESTATE UNDERWRITER-COMMISSIONING SPECIALIST-C 11/07/2019 04:00:00 PM EDT [facility] COVID TESTING [facility] COVID TESTING Outpatient Attender: Jordan Montana MDReferrer: Jordan Montana MD 10/06/2019 08:14:00 AM EDT - 10/06/2019 08:42:00 AM EDT [facility] Outpatient Attender: Jordan Montana MDReferrer: Jordan Montana MD 06/06/2019 03:45:00 PM EDT [facility] Outpatient Attender: Jordan Montana MDReferrer: Jordan Montana MD 05/03/2019 02:45:00 PM EDT - 05/03/2019 03:01:00 PM EDT [facility] Outpatient Attender: Christopher Garcia IIReferrer: Jordan ontiveros MD 02/23/2019 03:07:00 PM EST - 02/23/2019 04:14:00 PM EST [facility] Outpatient Attender: Christopher Garcia II 09/2019 09:19:00 AM EST - 02/16/2019 03:00:00 PM EST N80.8/DX LAPAROSCOPY [id number] [facility] N80.8/DX LAPAROSCOPY [id number] Patient discharged. Outpatient Attender: Shantal Sin DOAttender: Christopher Teddy marylencho II 02/15/2019 09:03:00 AM [facility] Attender: MARCELINO AYALA COMMISSIONING SPECIALIST ED-ED 04/2018 04:32:00 PM EST - 01/11/2019 06:27:00 PM EST KIDNEY PAIN [facility] KIDNEY PAIN Patient discharged. Immunizations Vaccine Date Status Description Data Source(s) IIV3. This is one of two codes replacing CVX 15, which is being retired. 11/24/2019 12:00:00 AM EDT completed influenza vaccine, inactivated [facility] Medications Medication Brand Name Start Date Product Form Dose Route Admi nistrative Instructions Pharmacy Instructions Status Indications Reaction Description Data Source(s) Amoxicillin 500 MG Oral Capsule Amoxicillin 01/18/2020 12:00:00 AM EST ORAL active [facility] ([facility] system) Afluria Qd 2020-(3yr up)(PF) (flu vac [id number] 36mos up(P F)) 11/24/2019 09:14:04 AM EDT 60 MCG completed [facility] varenicline 1 MG Oral Tablet Varenicline Varenicline 020 09:49:08 AM EDT 1 MG active [facility] varenicline 1 MG Oral Tablet Varenicline Varenicline 020 09:49:08 AM EDT 1 MG active [facility] Alprazolam 0.25 MG Oral Tablet Alprazolam 10/06/2019 09:47:45 AM EDT 0.25 MG active [facility] Alprazolam 0.25 MG Oral Tablet Alprazolam 10/06/2019 09:47:45 AM EDT 0.25 MG active [facility] Fluticasone Propionate (Allergy Relief ( Fluticasone)) 50 mcg/actuation spray,suspension 10/06/2019 08:49:45 AM EDT 2 SPRAY active [facility] Fluticasone Propionate (Allergy Relief ( Fluticasone)) 50 mcg/actuation spray,suspension 10/06/2019 08:49:45 AM EDT 2 SPRAY active [facility] Alprazolam 0.25 MG Oral Tablet Alprazolam 10/06/2019 08:49:26 AM EDT 0.25 MG completed [facility] Alprazolam 0.25 MG Oral Tablet Alprazolam 10/06/2019 08:49:26 AM EDT 0.25 MG completed [facility] varenicline Varenicline (Chantix Startin g Month Box) 0.5 mg (11)- 1 mg (42) tablets,dose pack Varenicline (Chantix Starting Month Box) 0.5 mg (11)- 1 mg (42) tablets,dose pack 10/06/2019 08:28:24 AM EDT 0 completed [facility] Cyclobenzaprine hydrochloride 10 MG Oral Tablet Cyclobenzapr ine 06/06/2019 04:44:40 PM EDT 10 MG completed [facility] Cyclobenzaprine hydrochloride 10 MG Oral Tablet Cyclobenzapr ine 06/06/2019 04:44:40 PM EDT 10 MG active [facility] Cyclobenzaprine hydrochloride 10 MG Oral Tablet Cyclobenzapr ine 06/06/2019 04:44:40 PM EDT 10 MG completed [facility] Cyclobenzaprine hydrochloride 10 MG Oral Tablet Cyclobenzapr ine 06/06/2019 04:44:40 PM EDT 10 MG completed [facility] Amoxicillin 500 MG Oral Capsule Amoxicillin 05/03/2019 02:51:08 PM ED T 500 MG completed [facility] Amoxicillin 500 MG Oral Capsule Amoxicillin 05/03/2019 02:51:08 PM ED T 500 MG completed [facility] Amoxicillin 500 MG Oral Capsule Amoxicillin 05/03/2019 02:51:08 PM ED T 500 MG completed [facility] Amoxicillin 500 MG Oral Capsule Amoxicillin 05/03/2019 02:51:08 PM ED T 500 MG completed [facility] Amoxicillin 500 MG Oral Capsule Amoxicillin 05/03/2019 02:51:08 PM ED T 500 MG active [facility] Acetaminophen 325 MG / Oxycodone Hydroch loride 5 MG Oral Tablet Oxycodone-Acetaminophen Oxycodone-Acetaminophen 02/16/2019 10:52:27 AM EST 1 TAB completed [facility] Acetaminophen 325 MG / Oxycodone Hydroch loride 5 MG Oral Tablet Oxycodone-Acetaminophen Oxycodone-Acetaminophen 02/16/2019 10:52:27 AM EST 1 TAB completed [facility] Acetaminophen 325 MG / Oxycodone Hydroch loride 5 MG Oral Tablet Oxycodone-Acetaminophen Oxycodone-Acetaminophen 02/16/2019 10:52:27 AM EST 1 TAB completed [facility] Acetaminophen 325 MG / Oxycodone Hydroch loride 5 MG Oral Tablet Oxycodone-Acetaminophen Oxycodone-Acetaminophen 02/16/2019 10:52:27 AM EST 1 TAB completed [facility] Acetaminophen 325 MG / Oxycodone Hydroch loride 5 MG Oral Tablet Oxycodone-Acetaminophen Oxycodone-Acetaminophen 02/16/2019 10:52:27 AM EST 1 TAB completed [facility] Cyclobenzaprine hydrochloride 10 MG Oral Tablet Cyclobenzapr ine 01/12/2019 12:19:54 PM EST 10 MG completed [facility] Cyclobenzaprine hydrochloride 10 MG Oral Tablet Cyclobenzapr ine 01/12/2019 12:19:54 PM EST 10 MG completed [facility] Cyclobenzaprine hydrochloride 10 MG Oral Tablet Cyclobenzapr ine 01/12/2019 12:19:54 PM EST 10 MG completed [facility] Cyclobenzaprine hydrochloride 10 MG Oral Tablet Cyclobenzapr ine 01/12/2019 12:19:54 PM EST 10 MG completed [facility] Cyclobenzaprine hydrochloride 10 MG Oral Tablet Cyclobenzapr ine 01/12/2019 12:19:54 PM EST 10 MG completed [facility] Alprazolam 0.25 MG Oral Tablet Alprazolam 12/13/2018 12:02:00 PM EST 0.25 MG completed [facility] Alprazolam 0.25 MG Oral Tablet Alprazolam 12/13/2018 12:02:00 PM EST 0.25 MG completed [facility] Albuterol Sulfate 04/10/2015 04:46:00 PM EST PUFFS completed [facility] Albuterol Sulfate 04/10/2015 04:46:00 PM EST PUFFS completed [facility] Albuterol Sulfate (Proventil Hfa) 6.7 GM HFA aerosol inhaler 04/10/2015 04:46:00 PM EST PUFFS completed [facility] Albuterol Sulfate (Proventil Hfa) 6.7 GM HFA aerosol inhaler 04/10/2015 04:46:00 PM EST PUFFS completed [facility] Albuterol Sulfate (Proventil Hfa) 6.7 GM HFA aerosol inhaler 04/10/2015 04:46:00 PM EST PUFFS completed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
[2020-04-01] MEDS ORDERED: ALPR0.25 (12:50)
--- NOTE | 2020-04-01 14:15 | REP ---
INDICATION: headache, facial numbness. COMPARISON: None. TECHNIQUE: CT BRAIN PERFORMED IN THE AXIAL PLANE. CORONAL RECONSTRUCTION IMAGES ARE PERFORMED. FINDINGS: THE VENTRICLES ARE NORMAL IN SIZE AND POSITION. THERE IS NO MIDLINE SHIFT OR MASS EFFECT. MACIEL-WHITE DIFFERENTIATION IS WELL MAINTAINED. THERE IS NO ACUTE INTRACRANIAL HEMORRHAGE OR EXTRA-AXIAL FLUID COLLECTION. BONE WINDOW EXAMINATION IS UNREMARKABLE. VISUALIZED MASTOID AIR CELLS AND PARANASAL SINUSES ARE CLEAR. IMPRESSION: NEGATIVE NONCONTRAST CT BRAIN. <Electronically signed by Florencio Francois > 04/01/20 [id number]
--- NOTE | 2020-04-01 14:58 | ECGEPIP ---
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
--- OUTSIDE RECORDS SUMMARY | 2020-04-01 15:14 | CCD ---
Author Author [facility] Organization [facility] Address Unknown Phone Unavailable Care Team Providers Care Director Of Research And Development Name Role Phone Vinicio Becker Unavailable Unavailable [...] [place] Unavailable Unavailable Garcia II, A Christopher Hatfiled Unavailable Unavailable Garcia II, A Christopher [place] [...] Unavailable Unavailable Kendra RG MD Unavailable Unavailable Knedra RG MD Unavailable Unavailable Kendra RG MD Unavailable Unavailable Kendra GR MD Unavailable Unavailable Kendra RG MD Unavailable [...] Iraida PA Unavailable Unavailable ZEGIL, D MARCELINO TOPOLOGY TEACHER Unavailable Unavailable ZEGIL, Antonio MARCELINO TOPOLOGY TEACHER Unavailable Unavailable ZEGIL, Antonio MARCELINO TOPOLOGY TEACHER Unavailable Unavailable KOPIDLANSKY, Donita IBARRA PLANT MANAGER-TOPOLOGY TEACHER-C Unavailable Unava ilable KOPIDLANSKY, Donita IBARRA PLANT MANAGER-TOPOLOGY TEACHER-C Unavailable Unava ilable KOPIDLANSKY, Donita IBARRA PLANT MANAGER-TOPOLOGY TEACHER-C Unavailable Unava ilable KOPIDLANSKY, Donita IBARRA PLANT MANAGER-TOPOLOGY TEACHER-C Unavailable Unava ilable KOPIDLANSKY, Donita IBARRA PLANT MANAGER-TOPOLOGY TEACHER-C Unavailable Unava ilable KOPIDLANSKY, Donita IBARRA APRN-TOPOLOGY TEACHER-C Unavailable Unava ilable KOPIDLANSKY, Donita IBARRA APRN-TOPOLOGY TEACHER-C Unavailable Unava ilable KOPIDLANSKY, Donita IBARRA APRN-TOPOLOGY TEACHER-C Unavailable Unava ilable KOPIDLANSKY, Donita IBARRA PLANT MANAGER-TOPOLOGY TEACHER-C Unavailable Unava ilable KOPIDLANSKY, Donita IBARRA APRN-TOPOLOGY TEACHER-C Unavailable Unava ilable KOPIDLANSKY, Donita IBARRA PLANT MANAGER-TOPOLOGY TEACHER-C Unavailable Unava ilable KOPIDLANSKY, Donita IBARRA APRN-TOPOLOGY TEACHER-C Unavailable Unava ilable KOPIDLANSKY, Donita IABRRA PLANT MANAGER-TOPOLOGY TEACHER-C Unavailable Unava ilable KOPIDLANSKY, Donita IBARRA PLANT MANAGER-TOPOLOGY TEACHER-C Unavailable Unava ilable KOPIDLANSKY, Donita IBARRA PLANT MANAGER-TOPOLOGY TEACHER-C Unavailable Unava ilable KOPIDLANSKY, Donita IBARRA PLANT MANAGER-TOPOLOGY TEACHER-C Unavailable Unava ilable KOPIDLANSKY, R FRED PLANT MANAGER-TOPOLOGY TEACHER-C Unavailable Unava ilable KOPIDLANSKY, Donita IBARRA PLANT MANAGER-TOPOLOGY TEACHER-C Unavailable Unava ilable KOPIDLANSKY, Donita IBARRA PLANT MANAGER-TOPOLOGY TEACHER-C Unavailable Unava ilable KOPIDLANSKY, R FRED PLANT MANAGER-TOPOLOGY TEACHER-C Unavailable Unava ilable KOPIDLANSKY, R FRED PLANT MANAGER-TOPOLOGY TEACHER-C Unavailable Unava ilable KOPIDLANSKY, Donita IBARRA PLANT MANAGER-TOPOLOGY TEACHER-C Unavailable Unava ilable KOPIDLANSKY, R FRED PLANT MANAGER-TOPOLOGY TEACHER-C Unavailable Unava ilable Birchenough, R Shantal DO [...] Unavailable Carly Hendrix MD Unavailable Unavailable Carly Hnedrix MD Unavailable Unavailable Carly Hendrix MD Unavailable Unavailable Carly Hendrix MD Unavailable Unavailable Carly Hendrix MD Unavailable Unavailable Carly Hendrix MD Unavailable Unavailable Carly Henrdix MD Unavailable Unavailable Carly Hendrix MD Unavailable [...] is protected by Article 27-F of the [facility] Public Health law. If you continue you may have access to information: Regarding HIV / AIDS; Provided by facilities licensed or operated by the [facility] Office of Mental Health; or Provided by the [facility] Office for People With Developmental Disabilities. If such information is present, then the following [facility] mandated warning applies: This information has been [...] law may result in a fine or long-term sentence or both. A general authorization for the release of medical or other information is NOT sufficient authorization for further disc losure. Allergies and Adverse Reactions Type Description Substance Reaction Status Data Source(s ) No Known Drug Allergies No Known Drug Allergies <OTHER> [facility] Drug allergy ceftriaxone ceftriaxone Hives MO [facility] Drug allergy codeine Codeine Rash MO [facility] Drug allergy sucralfate sucralfate Hives U [facility] Encounters Encounter Providers Location Date Indications Data Source(s ) Outpatient Attender: Lyndsey Hendrix MD 03/21/2020 09:19:00 AM [facility] Outpatient Attender: Vinicio PERLA Attender: BARBARA RG MDConsultant: Iraida PERLA 01/18/2020 12:02:00 PM [facility] - 01/18/2020 12:02 :00 PM [facility] Outpatient Attender: Vinicio PERLA Attender: BARBARA RG MDConsultant: Iraida PERLA 01/18/2020 11:30:00 AM [facility] - 01/18/2020 11:30 :00 AM [facility] Outpatient Attender: Jordan Montana MDReferrer: Jordan Montana MD 11/24/2019 09:14:00 AM EDT [facility] Outpatient Attender: FRED SANTOS PLANT MANAGER-TOPOLOGY TEACHER-C 11/07/2019 04:00:00 PM EDT [facility] COVID TESTING [facility] COVID TESTING Outpatient Attender: Jordan Montana MDReferrer: Jordan Montana MD 10/06/2019 08:14:00 AM EDT - 10/06/2019 08:42:00 AM EDT [facility] Outpatient Attender: Jordan Montana MDReferrer: Jordan Montana MD 06/06/2019 03:45:00 PM EDT [facility] Outpatient Attender: Jordan Montana MDReferrer: Jordan Montana MD 05/03/2019 02:45:00 PM EDT - 05/03/2019 03:01:00 PM EDT [facility] Outpatient Attender: Christopher Garcia IIReferrer: Jordan ontiveros MD 02/23/2019 03:07:00 PM EST - 02/23/2019 04:14:00 PM EST [facility] Outpatient Attender: Christopher Garcia II 09/2019 09:19:00 AM EST - 02/16/2019 03:00:00 PM EST N80.8/DX LAPAROSCOPY [id number] [facility] N80.8/DX LAPAROSCOPY [id number] Patient discharged. Outpatient Attender: Shantal Sin DOAttender: Christopher Teddy marylencho II 02/15/2019 09:03:00 AM [facility] Attender: MARCELINO AYALA TOPOLOGY TEACHER ED-ED 04/2018 04:32:00 PM EST - 01/11/2019 06:27:00 PM EST KIDNEY PAIN [facility] KIDNEY PAIN Patient discharged. Immunizations Vaccine Date Status Description Data Source(s) IIV3. This is one of two codes replacing CVX 15, which is being retired. 11/24/2019 12:00:00 AM EDT completed influenza vaccine, inactivated Le [facility] Medications Medication Brand Name Start Date Product Form Dose Route Admi nistrative Instructions Pharmacy Instructions Status Indications Reaction Description Data Source(s) Amoxicillin 500 MG Oral Capsule Amoxicillin 01/18/2020 12:00:00 AM EST ORAL active [facility] ([facility]) Afluria Qd 2020-(3yr up)(PF) (flu vac [id number] 36mos up(P F)) 11/24/2019 09:14:04 AM EDT 60 MCG completed [facility] varenicline 1 MG Oral Tablet Varenicline Varenicline 020 09:49:08 AM EDT 1 MG active [facility] varenicline 1 MG Oral Tablet Varenicline Varenicline 020 09:49:08 AM EDT 1 MG active [facility] Alprazolam 0.25 MG Oral Tablet Alprazolam 10/06/2019 09:47:45 AM EDT 0.25 MG active [facility] Alprazolam 0.25 MG Oral Tablet Alprazolam 10/06/2019 09:47:45 AM EDT 0.25 MG active [facility] Fluticasone Propionate (Allergy Relief ( Fluticasone)) 50 mcg/actuation spray,suspension 10/06/2019 08:49:45 AM EDT 2 SPRAY active [facility] Fluticasone Propionate (Allergy Relief ( Fluticasone)) 50 mcg/actuation spray,suspension 10/06/2019 08:49:45 AM EDT 2 SPRAY active [facility] Alprazolam 0.25 MG Oral Tablet Alprazolam 10/06/2019 08:49:26 AM EDT 0.25 MG completed [facility] Alprazolam 0.25 MG Oral Tablet Alprazolam 10/06/2019 08:49:26 AM EDT 0.25 MG completed [facility] varenicline Varenicline (Chantix Startin g Month Box) 0.5 mg (11)- 1 mg (42) tablets,dose pack Varenicline (Chantix Starting Month Box) 0.5 mg (11)- 1 mg (42) tablets,dose pack 10/06/2019 08:28:24 AM EDT 0 completed [facility] Cyclobenzaprine hydrochloride 10 MG Oral Tablet Cyclobenzapr ine 06/06/2019 04:44:40 PM EDT 10 MG completed [facility] Cyclobenzaprine hydrochloride 10 MG Oral Tablet Cyclobenzapr ine 06/06/2019 04:44:40 PM EDT 10 MG active [facility] Cyclobenzaprine hydrochloride 10 MG Oral Tablet Cyclobenzapr ine 06/06/2019 04:44:40 PM EDT 10 MG completed [facility] Cyclobenzaprine hydrochloride 10 MG Oral Tablet Cyclobenzapr ine 06/06/2019 04:44:40 PM EDT 10 MG completed [facility] Amoxicillin 500 MG Oral Capsule Amoxicillin 05/03/2019 02:51:08 PM ED T 500 MG completed [facility] Amoxicillin 500 MG Oral Capsule Amoxicillin 05/03/2019 02:51:08 PM ED T 500 MG completed [facility] Amoxicillin 500 MG Oral Capsule Amoxicillin 05/03/2019 02:51:08 PM ED T 500 MG completed [facility] Amoxicillin 500 MG Oral Capsule Amoxicillin 05/03/2019 02:51:08 PM ED T 500 MG completed [facility] Amoxicillin 500 MG Oral Capsule Amoxicillin 05/03/2019 02:51:08 PM ED T 500 MG active [facility] Acetaminophen 325 MG / Oxycodone Hydroch loride 5 MG Oral Tablet Oxycodone-Acetaminophen Oxycodone-Acetaminophen 02/16/2019 10:52:27 AM EST 1 TAB completed [facility] Acetaminophen 325 MG / Oxycodone Hydroch loride 5 MG Oral Tablet Oxycodone-Acetaminophen Oxycodone-Acetaminophen 02/16/2019 10:52:27 AM EST 1 TAB completed [facility] Acetaminophen 325 MG / Oxycodone Hydroch loride 5 MG Oral Tablet Oxycodone-Acetaminophen Oxycodone-Acetaminophen 02/16/2019 10:52:27 AM EST 1 TAB completed [facility] Acetaminophen 325 MG / Oxycodone Hydroch loride 5 MG Oral Tablet Oxycodone-Acetaminophen Oxycodone-Acetaminophen 02/16/2019 10:52:27 AM EST 1 TAB completed [facility] Acetaminophen 325 MG / Oxycodone Hydroch loride 5 MG Oral Tablet Oxycodone-Acetaminophen Oxycodone-Acetaminophen 02/16/2019 10:52:27 AM EST 1 TAB completed [facility] Cyclobenzaprine hydrochloride 10 MG Oral Tablet Cyclobenzapr ine 01/12/2019 12:19:54 PM EST 10 MG completed [facility] Cyclobenzaprine hydrochloride 10 MG Oral Tablet Cyclobenzapr ine 01/12/2019 12:19:54 PM EST 10 MG completed [facility] Cyclobenzaprine hydrochloride 10 MG Oral Tablet Cyclobenzapr ine 01/12/2019 12:19:54 PM EST 10 MG completed [facility] Cyclobenzaprine hydrochloride 10 MG Oral Tablet Cyclobenzapr ine 01/12/2019 12:19:54 PM EST 10 MG completed [facility] Cyclobenzaprine hydrochloride 10 MG Oral Tablet Cyclobenzapr ine 01/12/2019 12:19:54 PM EST 10 MG completed [facility] Alprazolam 0.25 MG Oral Tablet Alprazolam 12/13/2018 12:02:00 PM EST 0.25 MG completed [facility] Alprazolam 0.25 MG Oral Tablet Alprazolam 12/13/2018 12:02:00 PM EST 0.25 MG completed [facility] Albuterol Sulfate 04/10/2015 04:46:00 PM EST PUFFS completed [facility] Albuterol Sulfate 04/10/2015 04:46:00 PM EST PUFFS completed [facility] Albuterol Sulfate (Proventil Hfa) 6.7 GM HFA aerosol inhaler 04/10/2015 04:46:00 PM EST PUFFS completed [facility] Albuterol Sulfate (Proventil Hfa) 6.7 GM HFA aerosol inhaler 04/10/2015 04:46:00 PM EST PUFFS completed [facility] Albuterol Sulfate (Proventil Hfa) 6.7 GM HFA aerosol inhaler 04/10/2015 04:46:00 PM EST PUFFS completed [facility] Insurance Providers Payer name Policy type / Coverage type Policy ID Covered alliance party ID Covered alliance party's relationship to duff Policy Duff Plan Information [place] P[place] 302/307 [id number] SP [id number] EXCELLUS [facility] BS [id number] 18 [id number] [place] PPO 302/307 [id number] SP [id number] [facility] [place] [id number] [place] [id number] [facility] [id number] S [id number] [facility] [place] O [id number] S [id number] [place] [address] Self [id number] [employer] INSURANCE -O/P [id number] 18 [id number] [facility] [place] [place] [id number] 18 [id number] BLUE CROSS BLUE SHIELD -O/P [id number] 01 [id number] NCA COMP [id number] SP [id number] [employer] MEDICAL CLAIMS [id number] [id number] COMMERCIAL HEA [id number] S [id number] [facility] [place] [id number] 18 [id number] EXCELLUS BCBS B [id number] P [id number] BLUE CROSS BLUE SHIELD -PHYSICIAN [id number] 01 [id number] BLUE CROSS BLUE SHIELD -O/P [id number] 1 [id number] [employer] AMERICHOICE XIX HMO [id number] 18 [id number] [facility](MCA[facility]) O [id number] S [id number] EXCELLUS BCBS S [id number] S [id number] EXCELLUS BCBS P [id number] S [id number] BLUE CROSS BLUE SHIELD-I/P [id number] 18 [id number] [facility] [id number] 18 [id number] [facility] [id number] 18 [id number] Problems, Conditions, and Diagnoses Code Display Name Description Problem Type Effective Dates Data Source(s) R99 Ill-defined and unknown cause of mortali ty Ill-defined and unknown cause of mortality Diagnosis 01/18/2020 11:30:00 AM [facility] Surgeries/Procedures Procedure Description Date Indications Data Source(s) Nucleic acid assay (procedure) 11/07/2019 12:00:00 AM EDT [facility] Results ID Date Data Source [id number] 03/21/2020 10:29:00 AM [facility] 03/21/20 - CALLED TO ALLY BIRCH AT 1 028 BY [email or web address].RESTULTS READ BACK.Normal result is "BinaxNow Covid-19 Ag negative"BinaxNow Covid-19 Ag is a rapid lateral flowimmunochromatographic immunoassayThis test detects both viable(live) and non-viable, SARS-COVand SARS-COV-2.Positive test results do not differentiate between SARS-COVand [id number] results , from patients with symptom ons [...] rce(s) Supporting Document(s) ID Date Data Source [id number] 03/21/2020 09:19:00 AM EST [facility] Name Value Range Interpretation Code Description Data Trice rce(s) Supporting Document(s) SARS-CoV-2 (COVID-19) Ag [Presence] in R espiratory specimen by Rapid immunoassay BinaxNow Covid -19 Ag Negative [facility] This lab was ordered by [facility] and reported by [facility]. ID Date Data Source [id number] 03/21/2020 12:00:00 AM EST [facility] Name Value Range Interpretation Code Description Data Trice rce(s) Supporting Document(s) SARS-CoV-2 (COVID-19) RNA [Presence] in Respiratory specimen by RAMESH with probe detection Not Detected [facility] This lab was ordered by [facility] and reported by [employer]. ID Date Data Source [id number] 01/18/2020 01:37:00 PM EST [facility] Name Value Range Interpretation Code Description Data Trice rce(s) Supporting Document(s) SARS coronavirus 2 RNA [facility] This lab was ordered by [facility] and reported by [facility]. ID Date Data Source [id number] 01/21/2020 04:33:00 PM [facility] Name Value Range Interpretation Code Description Data [facility] rce(s) Supporting Document(s) CULTURE UPPER RESPIRATORY [facility] _CULTURE UPPER RESPIRATORY_$$[id number]$$[id number]$$[id number]$$[id number]$$[id number]$$[id number] DATE/TIME: 01/21/2020 16:06Culture: CULTURE UPPER RESPIRATORY Status: FinalUpper Respiratory Culture: [id number] respiratory floraP1 Test performed by: [facility] #: [id number] [address] [place] [address] [id number] [facility] [id number] Director : Carlton Poole MD NPI #:Supervisor Of Operations : 01/21/20.1633.XMT.SENT REF 01/21/20.163Riddhi. .to via fax ID Date Data Source [id number] 01/21/2020 07:00:00 AM EST [facility] Name Value Range Interpretation Code Description Data Trice rce(s) Supporting Document(s) SARS-CoV-2, RAMESH Not Detected Not Detected [facility] This nucleic acid amplification test was developed and its performancecharacteristics determined by [employer]. Nucleic acidamplification tests include PCR and TMA. [...] in this assay. ID Date Data Source [id number] 11/24/2019 09:14:00 AM EDT [facility] Patient Name: LEAH CHAVIRA DO B: 1975 Sex: F Pt Unit #: [id number] Location:[facility] Provider: Visit Date/Time: 11/24/19 Primary Insurance: /[facility] Secondary Insurance: Self Pay ADDENDUM Office Procedure Documentation entered by Breana Alaniz LPN 11/24/19 09:48: Immunizations Afluria Qd (3yr up)(PF) Performing Provider: Jordan Montana M.D. Administered by: Breana Alaniz LPN on 11/24/19 09:47 Dose Route Admin Location Lot Number Expiration Date NDC Manufactu rer 60 mcg IM Right arm [id number] 08/08/20 66927-065-05 [employer] VIS Given Date VIS Provided VIS Publication Date 11/24/19 Single Vaccine 18 Eligibility Eligibility Date Funding Source Not [facility] Eligible 11/24/19 Private <Electronically signed by [...] Here today for referral for breast reduction Semiconductor Wafers Etch Operator Required: No Accompanied by: self Is patient in pain?: No Allergies ceftriaxone [Ceftriaxone] Allergy (Intermediate, Verified 02/23/19 16:14) Hives codeine [Codeine] Allergy (Intermediate, Verified 02/23/19 16:14) Rash sucralfate [From Carafate] Allergy (Verified 02/23/19 16:14) Hives HIV Testing Offer - ages 13-64 Requirement for HIV testing offer be en met?: Declines today. Pretest education received and acknowledged [facility] Medical History (Updated 11/24/19 @ 09:40 by [...] program current occupational status: employed current occupation: [employer] Recent Travel (where): No sexually active: Yes [...] N62 - Hypertrophy of breast SNOMED Code(s): 570715535 Category: Medical Plan - Jordan Montana M.D.: the entire visit was spent in discussion of the indications for surgery, who she wants to see, her current allergic symptoms and problems she is having with the school nurse relative to her son. shewill be referred to [facility]. 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 THIS RP PANEL TESTS FOR SARS-CoV-2,(COVID-19)FilmArray Respiratory Panel is a Multiplexed NAAT- PCR testNORMAL VALUE FOR ALL 20 PATHOGENS IS "NOT DETECTED".The FilmArray RP panel detects Influenza A H1,H3 clk7991 H1 viruses,Influenza B virus, Respiratory syncytialvirus, Human [...] rce(s) Supporting Document(s) ID Date Data Source [id number] 11/07/2019 12:00:00 AM EDT [facility] Name Value Range Interpretation Code Description Data Trice rce(s) Supporting Document(s) SARS-CoV2 Rapid PCR [facility] This lab was ordered by [facility] - OP - [employer] Employee and reported by [facility]. ID Date Data Source [id number] 10/06/2019 08:16:00 AM EDT [facility] Patient Name: LEAH CHAVIRA : 1975 Sex: F Pt Unit #: [id number] Location:[facility] Provider: Visit Date/Time: 10/06/19 Primary Insurance: /[facility] Secondary Insurance: Self Pay Intake Vital Signs [...] Declines today. Pretest education received and acknowledged [facility] Medical History Carcinoma of cervix Endometriosis Generalized [...] program current occupational status: employed current occupation: [email or web address] Recent Travel (where): Yes ([place]) out of [...] Panic disorder [episodic paroxysmal anxiety] SNOMED Code(s): 68193485 Category: Medical Plan - Jordan Montana M.D.: [...] rce(s) Supporting Document(s) ID Date Data Source [id number] 06/06/2019 03:51:00 PM EDT [facility] Patient Name: LEAH CHAVIRA : 1975 Sex: F Pt Unit #: [id number] Location:[facility] Provider: Visit Date/Time: 06/06/19 Primary Insurance: /[facility] Secondary Insurance: Self Pay Intake Vital Signs [...] week. States this is not a migraine. Semiconductor Wafers Etch Operator Required: No Accompanied by: self Is patient [...] Screening Screening Have you traveled outside of [facility] or [facility] in the last 14 days.: No Has [...] program current occupational status: employed current occupation: [employer] Recent Travel (where): No sexu ally active: [...] at neck level, initial encounter SNOMED Code(s): 127337045 Category: Medical Plan - Jordan Montana M.D.: [...] rce(s) Supporting Document(s) ID Date Data Source [id number] 05/03/2019 02:44:00 PM EDT [facility] Patient Name: LEAH CHAVIRA : 1975 Sex: F Pt Unit #: [id number] Location:[facility] Provider: Visit Date/Time: 05/03/19 Primary Insurance: /[facility] Secondary Insurance: Self Pay ADDENDUM discussion with [...] Declines today. 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 PT STATES THAT SHE IS DOING WELL. NO FEVER OR CHILLS. MOVING BOWELS NORMALLY VOIDING WITH NO S/SX'S OF UTI. SHE DID HAVE SOME VAGINAL BLEEDING UP UNTIL THIS PAST THURSDAY. NO VAGINAL D/C OR ITCHING REPORTED. Semiconductor Wafers Etch Operator Required: No Is patient in pain?: No [...] Declines today. Pretest education received and acknowledged [facility] Medical History Acute bilateral low back pain [...] program current occupational status: employed current occupation: [email or web address] Hx Recent Travel (where): No sexually active: [...] oriented x3 Quality Reporting Sexual Activity Screening ([facility] 153) Sexually active?: Yes Assessment Plan Assessment Plan (1) Encounter for Postoperative Care: Code(s): Z48.89 - Encounter for other specified surgical aftercare (2) Encounter for wound care: Status: Acute Comment: wound healing well histoacryl scab loosened for removal,wound care reviewed Code(s): Z51.89 - Encounter for other specified aftercare SNOMED Code(s): 173627604 Category: Medical (3) Adhesions due to endometriosis: Status: Acute Comment: stable old scarring Code(s): N80.9 - Endometriosis, unspecified SNOMED Code(s): 463563348 Category: Medical (4) Postoperative adhesions: Status: Acute Comment: showed op photos so she can discuss with PT where adhesions are Code(s): K66.0 - Peritoneal adhesions (postprocedural) (postinfection) SNOMED Code(s): 00609481 Category: Medical Orders Other Orders: Orders: Physical Therapy Evaluation Today N73.6 Follow Up: 6 Months (f/u on abdominal adhesions post PT) Electronically Signed By: <Electronically signed by Christopher Garcia II, MD> Date/Time Signed: 02/23/19 1624 Name Value Range Interpretation Code Description Data Trice rce(s) Supporting Document(s) ID Date Data Source [id number] 02/17/2019 08:54:00 AM [facility] OPERATIVE REPORT NAME: LEAH CHAVIRA : 1975 AGE: 44 MR#: [id number] ADMITTING DATE: 02/16/[address]: DISCHARGE DATE: [...] side, and otherwise follow up as needed. /[id number] <Electronically signed by Christopher Garcia II, MD> Christopher Garcia II, MD 02/18/19 0725 Christopher Garcia II, MD Cosigner: D: LEONILA 02/17/19 0854 T: RATNA 02/17/19 0943 CC: Jordan Montana M.D.; Christopher Garcia II, MD LAST EDIT: Name Value Range Interpretation Code Description Data Trcie rce(s) Supporting Document(s) ID Date Data Source [id number] 02/16/2019 12:39:00 PM [facility] Name: Leah Chavira : 1975 Age: 44 MR#: [id number] Admit Date: 02/16/19 Provider: Christopher Garcia II, [...] rce(s) Supporting Document(s) ID Date Data Source [id number] 02/16/2019 11:37:00 AM EST [facility] @02/15/19 1148: Type NC added. RFLXG = T YPE.@ EARLINE DATE was changed from 02/15/19 to 02/16/19@ by INEZ. Old specimen was [id number]. Name Value Range Interpretation Code Description Data Trice rce(s) Supporting Document(s) Blood Type [facility] ID Date Data Source [id number] 02/15/2019 10:15:00 AM EST [facility] Name Value Range Interpretation Code Description Data Trice rce(s) Supporting Document(s) Leukocytes [#/volume] in Blood by Automated count 8.1 10*3/uL 4.45-10 .71 N [facility] Erythrocytes [#/volume] in Blood by Automated count 4.57 10*6/uL 4.20 -5.40 N [facility] Hemoglobin [Moles/volume] in Blood 13.5 g/dL 10.7-15.4 N [facility] Hematocrit [Volume Fraction] of Blood by Automated count 41.6 % 3 7-47 N [facility] Erythrocyte mean corpuscular volume [Ent itic volume] in Cord blood by Automated count 91.0 fL 80-96 N [facility] Erythrocyte mean corpuscular hemoglobin [Entitic mass] by Automated count 29.5 pg 27-31 N [facility] Erythrocyte mean corpuscular hemoglobin concentration [Mass/volume] in Cord blood 32.5 g/dL 33-37 Below low normal [facility] Erythrocyte distribution width [Entitic volume] by Automated count 14 % 11-15 N [facility] Platelets [#/volume] in Blood by Automated count 441 10*3/uL 130-472 N [facility] Platelet mean volume [Entitic volume] in Blood 9.3 fL 9.1-13.1 N [facility] Neutrophils/100 leukocytes in Blood by Automated count 66.0 % 41- 77 N [facility] Neutrophils [#/volume] in Blood by Automated count 5.4 U 1.7-7.6 N [facility] Lymphocytes/100 leukocytes in Blood by Automated count 22.9 % 14- 46 N [facility] Lymphocytes [#/volume] in Blood by Automated count 1.9 U 0.6-4.6 N [facility] Monocytes/100 leukocytes in Blood by Automated count 8.0 % 4-12 N [facility] Monocytes [#/volume] in Blood by Automated count 0.7 U 0.2-1.2 N [facility] Eosinophils/100 leukocytes in Blood by Automated count 2.0 % 0-7 N [facility] Eosinophils [#/volume] in Blood by Automated count 0.2 U 0.0-0.5 N [facility] Basophils/100 leukocytes in Blood by Automated count 0.7 % 0.4-1 .3 N [facility] Basophils [#/volume] in Blood by Automated count 0.1 U 0.0-0.2 N [facility] NUCLEATED RED BLOOD CELL 0 % [facility] NUCLEATED RED BLOOD CELL# 0 U [facility] Immature granulocytes [Presence] in Blood by Automated count 0-2 N [facility] Immature granulocytes [#/volume] in Blood by Automated count 0.0 U 0-0.1 N [facility] Manual Differential panel - Blood NO [facility] ID Date Data Source [id number] 02/15/2019 11:11:00 AM [facility] Name Value Range Interpretation Code Description Data Trice rce(s) Supporting Document(s) Choriogonadotropin.beta subunit [Units/volume] in Serum or P lasma Less Than 1 0-10 N [facility] @Report as less than lower limitAPPROXIM ATE GESTATION AGE APRROXIMATE HCG RANGE 0-1 WEEK 0 - 50 1-2 WEEKS 40 - 300 2-3 WEEKS 100 - 1,000 3-4 WEEKS 500 - 6,000 1-2 MONTHS 5,000 - 200,000 2-3 MONTHS 10,000 - 100,000 2ND TRIMESTER 3,000 - 50,000 3RD TRIMESTER 1,000 - 50,000 ID Date Data Source [id number] 02/15/2019 11:48:00 AM [facility] @02/15/19 1147: Pre Op? added. RFLXG = T RX.@02/15/19 1147: Pretransfusion? added. RFLXG = TRX.@02/15/19 1147: Inpatient? added. RFLXG = TRX.:: NTransfused within 90 days?: NPre Op? (IF Yes, give date): Y Name Value Range Interpretation Code Description Data Trice rce(s) Supporting Document(s) Blood bank studies (set) No A [facility] @To complete the specimen, you MUST pull the specimen back@up and answer the Preop, Transfusion and Inpatient@questions. Perform a second Type if needed. Blood Type [facility] Antibody Screen NEGATIVE [facility] ID Date Data Source [id number] 02/15/2019 11:48:00 AM [facility] @02/15/19 1147: Pre Op? added. RFLXG = T RX.@02/15/19 1147: Pretransfusion? added. RFLXG = TRX.@02/15/19 1147: Inpatient? added. RFLXG = TRX.:: NTransfused within 90 days?: NPre Op? (IF Yes, give date): Y Name Value Range Interpretation Code Description Data Trice rce(s) Supporting Document(s) Pre Op? Yes A [facility] A Blood Type Confirmation has been added to this patient.A NEW specimen must be collected for the confirmation.No blood products will be issued until the second blood typeis complete. ID Date Data Source [id number] 02/15/2019 11:48:00 AM [facility] @02/15/19 1147: Pre Op? added. RFLXG = T RX.@02/15/19 1147: Pretransfusion? added. RFLXG = TRX.@02/15/19 1147: Inpatient? added. RFLXG = TRX.:: NTransfused within 90 days?: NPre Op? (IF Yes, give date): Y Name Value Range Interpretation Code Description Data Trice rce(s) Supporting Document(s) Pretransfusion? No [facility] ID Date Data Source [id number] 02/15/2019 11:48:00 AM [facility] @02/15/19 1147: Pre Op? added. RFLXG = T RX.@02/15/19 1147: Pretransfusion? added. RFLXG = TRX.@02/15/19 1147: Inpatient? added. RFLXG = TRX.:: NTransfused within 90 days?: NPre Op? (IF Yes, give date): Y Name Value Range Interpretation Code Description Data Trice rce(s) Supporting Document(s) Inpatient? No [facility] Procedure Social History Code Duration Value Status Description Data Source(s ) 02/08/2019 10:33:00 AM EST Current every day smoker co mpleted Current every day smoker [facility] 02/08/2019 10:33:00 AM EST Current every day smoker co mpleted Current every day smoker [facility] 02/08/2019 10:33:00 AM EST Current every day smoker co mpleted Current every day smoker [facility] 02/08/2019 10:33:00 AM EST Current every day smoker co mpleted Current every day smoker [facility] Smoking 02/08/2019 10:33:00 AM EST Current every day smoker co mpleted Current every day smoker [facility] 02/08/2019 10:33:00 AM EST Current every day smoker co mpleted Current every day smoker [facility] Smoking 02/08/2019 10:33:00 AM EST Current every day smoker co mpleted Current every day smoker [facility] 02/08/2019 10:33:00 AM EST Current every day smoker co mpleted Current every day smoker [facility] Smoking 02/08/2019 10:33:00 AM EST Current every day smoker co mpleted Current every day smoker [facility] 02/08/2019 10:33:00 AM EST Current every day smoker co mpleted Current every day smoker [facility] Smoking 02/08/2019 10:33:00 AM EST Current every day smoker co mpleted Current every day smoker [facility] Smoking 02/08/2019 09:33:00 AM EST Current every day smoker co mpleted Current every day smoker [facility] Smoking 02/08/2019 09:33:00 AM EST Current every day smoker co mpleted Current every day smoker [facility] Smoking 02/08/2019 09:33:00 AM EST Current every day smoker co mpleted Current every day smoker [facility] Vital Signs ID Date Data Source UNK Name Value Range Interpretation Code Description Data Source(s) Oxygen saturation in Arterial blood by Pulse oximetry 94 % 94 % [facility] ([facility]) Respiratory rate 18 /min 18 /min [facility] ( [facility]) Body temperature 97.8 [degF] 97.8 [degF] [facility] ([facility]) Heart rate 70 /min 70 /min [facility] ([facility]) Body weight 63.050 kg 63.050 kg [facility] Whitt body weight 100 [lb_av] 100 [lb_av] [facility] ([facility]) Body mass index (BMI) [Ratio] 28.1 kg/m2 28.1 k g/m2 [facility] Body weight 139.00 [lb_av] 139.00 [lb_av] [facility] Body height 59 [in_i] 59 [in_i] [facility] ([facility]) 4'11" Body temperature 98.1 [degF] 98.1 [degF] [facility] ([facility]) Respiratory rate 18 /min 18 /min [facility] ( [facility]) Heart rate 88 /min 88 /min [facility] ([facility]) Diastolic blood pressure 64 mm[Hg] 64 mm[Hg] [facility] ([facility]) Systolic blood pressure 104 mm[Hg] 104 mm[Hg] [facility] ([facility]) ID Date Data Source [id number] 07/18/2019 12:20:00 PM EDT [facility] spital Name Value Range Interpretation Code Description Data Source(s) Weight Measurement Method 8 8 [facility] Weight 2111 2111 [facility] pital Temperature Source 7 7 [facility] Temperature 99.2 99.2 [facility] spital Respiratory Effort 1 1 [facility] Respiratory Rate 18 18 [facility] Pulse Assessment Method 4 4 [facility] Pulse Rate 88 88 [facility] pital Height 59 59 [facility] pital Blood Pressure 104/75 104/75 [facility] Weight Measurement Method 8 8 [facility] Weight 2111 2111 [facility] pital Temperature Source 7 7 [facility] Temperature 99.2 99.2 [facility] Respiratory Effort 1 1 [facility] Respiratory Rate 18 18 [facility] Pulse Assessment Method 4 4 [facility] Pulse Rate 88 88 [facility] pital Height 59 59 [facility] pital Blood Pressure 104/75 104/75 [facility] Weight Measurement Method 8 8 [facility] Weight 2111 2111 [facility] pital Temperature Source 7 7 [facility] Temperature 99.2 99.2 [facility] Respiratory Effort 1 1 [facility] Respiratory Rate 18 18 [facility] Pulse Assessment Method 4 4 [facility] Pulse Rate 88 88 [facility] pital Height 59 59 [facility] pital Blood Pressure 104/75 104/75 [facility] Weight Measurement Method 8 8 [facility] Weight 2111 2111 [facility] pital Temperature Source 7 7 [facility] Temperature 99.2 99.2 [facility] Respiratory Effort 1 1 [facility] Respiratory Rate 18 18 [facility] Pulse Assessment Method 4 4 [facility] Pulse Rate 100 100 [facility] 59 59 [facility] 135/78 135/78 [facility] Weight Measurement Method 8 8 [facility] Weight 2111 2111 [facility] pital Temperature Source 7 7 [facility] Temperature 99.2 99.2 [facility] Respiratory Effort 1 1 [facility] Respiratory Rate 18 18 [facility] Pulse Assessment Method 4 4 [facility] Pulse Rate 100 100 [facility] pital Height 59 59 [facility] pital Blood Pressure 135/78 135/78 [facility]
--- NOTE | 2020-04-01 16:56 | REPVR ---
PROCEDURE INFORMATION: Exam: MR Head Without Contrast Exam date and time: 04/01/2020 4:41 PM Age: 45 years old Clinical indication: Other: L facial and lue sensory changes R/O CVA TECHNIQUE: Imaging protocol: MR of the head without contrast. COMPARISON: CT Head without contrast 04/01/2020 1:24 PM FINDINGS: Brain: Few scattered nonspecific T2/FLAIR hyperintensities of the periventricular and deep subcortical white matter. No intracranial hemorrhage or extra-axial fluid collection. No evidence of mass effect or midline shift. No restricted diffusion to suggest acute infarct. Cerebral ventricles: No ventriculomegaly. Bones/joints: Unremarkable. Paranasal sinuses: Normal as visualized. No acute sinusitis. Mastoid air cells: No mastoid effusion. Orbital cavity: Unremarkable. Soft tissues: Unremarkable. IMPRESSION: 1. No acute intracranial pathology. 2. Few scattered nonspecific T2/FLAIR hyperintensities of the periventricular and deep subcortical white matter. Differential includes but is not limited to sequela of chronic small vessel ischemic change versus demyelinating disease such as multiple sclerosis. Follow-up at the discretion of neurology. Electronically signed by: Nestor Erickson On 04/01/2020 16:56:19 PM
--- NOTE | 2020-04-01 16:59 | REPVR ---
PROCEDURE INFORMATION: Exam: MR Cervical Spine Without Contrast Exam date and time: 04/01/2020 4:41 PM Age: 45 years old Clinical indication: Other: L facial and lue sensory changes R/O CVA; Additional info: L facial and lue sensory changes R/O CVA v discogenic TECHNIQUE: Imaging protocol: Multiplanar magnetic resonance images of the cervical spine without contrast. COMPARISON: No relevant prior studies available. FINDINGS: Cervical vertebral body heights are intact. Straightening of the cervical lordosis. The dens is intact. No abnormal marrow signal. No cord compression, expansion, or abnormal cord signal. Visualized structures of the posterior fossa are unremarkable. Soft tissues are unremarkable. C2-C3: No significant canal or foraminal narrowing. C3-C4: No significant canal or foraminal narrowing. C4-C5: No significant canal or foraminal narrowing. C5-C6: Uncovertebral spurring causes mild canal narrowing and mild bilateral foraminal narrowing. C6-C7: No significant canal or foraminal narrowing. C7-T1: No significant canal or foraminal narrowing. IMPRESSION: 1. No acute findings in the cervical spine. 2. Mild spondylotic changes at C5-C6, as detailed above. Electronically signed by: Nestor Erickson On 04/01/2020 16:58:51 PM
[2020-04-01 17:27] VITALS: BP 127/87
== END 2020-04-01 17:38 | disposition home or self-care (01) ==
LOC: M ED 12:39
DX: R20.2 Paresthesia of skin (principal); R90.82 White matter disease, unspecified; K57.32 Diverticulitis of large intestine without perforation or abscess without bleeding; F17.200 Nicotine dependence, unspecified, uncomplicated; Z79.899 Other long term (current) drug therapy; Z88.5 Allergy status to narcotic agent

== ENCOUNTER → 2020-07-14 | Outpatient (CLI) | payer BC ==
[~2020-07-14] MED LIST changes: +ALL10TAB3 PO; +ALPR0.25; +LEXA1TAB2 PO; +VITA100062 PO; +VITA500045 PO
== END ==
LOC: M LABSMTC 09:46
PROVIDERS: ATTEND Anesthesiology
DX: Z01.812 Encounter for preprocedural laboratory examination (principal); Z20.822 Contact with and (suspected) exposure to COVID-19

== ENCOUNTER 2020-07-19 06:04 | Day surgery (SDC) | payer BC ==
[~2020-07-19] VITALS: Ht 149.9 cm; Wt 61.2 kg
[2020-07-19] VITALS (7 sets, daily range): BP systolic 108–131; BP diastolic 65–79
[~2020-07-19 06:04] MED LIST changes: +LR 1,000 ML IV ONE; +ceFAZolin SOD 1 GM in D5W MINI-BAG PLUS 50 ML IV ONE
[2020-07-19] MEDS ORDERED: CLON0.25 PO (06:41)
[2020-07-19] MEDS ORDERED: BACITRACIN PWD 50,000 UNITS VIAL As Ordered ONE (07:11)
[2020-07-19] MEDS ORDERED: BUPIVACAINE LIPOSOME/PF 1.3% 20ML VIAL (13.3MG/ML)(EXPAREL)(C9290 PER1MG) As Ordered ONE (07:11)
[2020-07-19] MEDS ORDERED: propofoL 200 MG/20 ML VIAL As Ordered ONE (07:23)
[2020-07-19] MEDS ORDERED: LIDOCAINE 2% 100MG/5ML SDV (FOR ANES.) As Ordered ONE (07:23)
[2020-07-19] MEDS ORDERED: fentaNYL 250 MCG/5 ML INJECTION (J3010) As Ordered ONE (07:23)
[2020-07-19] MEDS ORDERED: dexameTHASONE 4 MG/ML 1ML VIAL (J1100 PER 1MG) As Ordered ONE (07:23)
[2020-07-19] MEDS ORDERED: ROCURONIUM BROMIDE 50 MG/5 ML VIAL As Ordered ONE ×2 (07:23→08:26)
[2020-07-19] MEDS ORDERED: MIDAZOLAM INJ 2MG/2ML VIAL (J2250 PER 1MG) As Ordered ONE (07:24)
[2020-07-19] MEDS ORDERED: SCOPOLAMINE 1MG TRANSDERMAL PATCH TOP ONE (07:30)
[2020-07-19] MEDS ORDERED: ACETAMINOPHEN 1000MG 100ML IV BTL (OFIRMEV) (J0131 PER 10MG) As Ordered ONE (08:35)
[2020-07-19] MEDS ORDERED: SUGAMMADEX SODIUM 500 MG/5 ML VIAL (BRIDION) As Ordered ONE (08:35)
[2020-07-19] MEDS ORDERED: HYDROmorphone HCL 2 MG/ML 1ML VIAL (J1170) As Ordered ONE (08:36)
[2020-07-19] MEDS ORDERED: ePHEDrine SULFATE 25 MG/5 ML(5MG/ML) SYRINGE As Ordered ONE (08:52)
[2020-07-19] MEDS ORDERED: ONDANSETRON 4MG/2ML VIAL As Ordered ONE (08:52)
--- NOTE | 2020-07-19 11:05 | ROOPDOC ---
[facility] Report Of Operation Report of Operation Date Of Procedure: Jul 19, 2020 PREOPERATIVE DIAGNOSIS: Bilateral breast hypertrophy POSTOPERATIVE DIAGNOSIS: same FINDINGS: large breasts PROCEDURE: bilateral breast reduction SURGEON: Dr Hobson FORECLOSURE HOME INSPECTOR: Dr Guajardo ANESTHESIA: General SPECIMENS: Right breast 275 gm, Left breast 256 gm ESTIMATED BLOOD LOSS: 50 cc REPLACED: none DRAINS: 10 mm DONNA x 2 COMPLICATIONS: none POSTOPERATIVE CONDITION: stable DESCRIPTION OF PROCEDURE: This is a 45-year-old female who upper back and neck pain worsened by large breasts. She wears a 36DD bra. She is scheduled for bilateral breast reduction. Risks, benefits, and alternatives were discussed with the patient in detail, and she is ready to proceed. The day of surgery, she was marked in the upright position and informed consent was obtained. She measured 28.5 cm from sternal notch to nipple on the right and 27.5 cm on the left , IMF at 20 cm bilaterally. She was brought into the operating room and placed in the supine position. Preoperative antibiotics and 5000 units heparin subcutaneous were given. Sequential pneumatic stocking were placed on the lower calves. General anesthesia was induced. She was prepped and draped in the usual sterile fashion. We started our procedure on the right side. Her nipple areolar complex was outlined 42 mm in diameter, and the patient was marked according superior medial pedicle. We started our incision by scoring the nipple areolar complex area, and then dissection was continued until the inferior lateral portion of the breast was resected. Hemostasis was obtained using electrocautery. The pedicle was de- epithelialized using Luz scissors, good perfusion to the nipple at all times. Wound was irrigated with Bacitracin solution. We used Exparel 6 cc for local anesthesia to infiltrate in the Pectoralis muscle as well as the breast tissue. Than pedicle was turned superior to its new location at 20 cm from sternal notch. The mound was re-created using conforming 0 Vicryl sutures. Pillars were closed with interrupted 3-0 Monocryl sutures. The vertical limb was 6.5 cm. Excess tissue inferiorly was measured and resected, creating the horizontal scar. Nipple area complex was brought into view through the new opening and sutured in place with 3-0 and 4-0 Monocryl sutures and a 5-0 plain. A 10 mm Higinio-Walsh drain was placed through the lateral portion of the horizontal incision. Then we turned our attention to the left side. Mirror procedure was carried out. Again, resection was done according to superior-medial pedicle using electrocautery and PEEK cautery. Hemostasis was obtained. The pedicle was in good viable condition. Exparel was infiltrated through the pectoralis muscle and the breast tissue 6 cc. Than pedicle was turned superior to its new location at 20 cm from sternal notch. The mound was re-created using conforming 0 Vicryl sutures. Pillars were closed with interrupted 3-0 Monocryl sutures. The vertical limb was 6.5 cm. Excess tissue inferiorly was measured and resected, creating the horizontal scar. Nipple area complex was brought into view through the new opening and sutured in place with 3-0 and 4-0 Monocryl sutures and a 5-0 plain gut suture in interrupted fashion. A 10 mm Higinio-Walsh drain was placed through the lateral portion of the horizontal incision. Remaining Exparel injected in the horizontal incision. Total Exparel use 20 cc. Resected tissue sent to pathology in two specimens right and left breast tissue. Right breast to 275 grams, left breast 256 grams. Dressings were applied to vertical and horizontal incision: Prineo. Nipples areolar complex: Xeroform and a bulky dressing with a surgical bra. Patient was extubated in the operating room without difficulty and was transferred to the recovery room in stable condition. MARIA GUADALUPE HOBSON 10, 2021 11:05
--- NOTE | 2020-07-19 11:05 | POST-OPPD ---
Postoperative Procedure Note Date Of Procedure: Jul 19, 2020 PREOPERATIVE DIAGNOSIS: Bilateral breast hypertrophy POSTOPERATIVE DIAGNOSIS: same FINDINGS: large breasts PROCEDURE: bilateral breast reduction SURGEON: Dr Hobson HARD TILE SETTER: Dr Guajardo ANESTHESIA: General SPECIMENS: Right breast 275 gm, Left breast 256 gm ESTIMATED BLOOD LOSS: 50 cc REPLACED: none DRAINS: 10 mm DONNA x 2 COMPLICATIONS: none POSTOPERATIVE CONDITION: stable MARIA GUADALUPE HOBSON DO Jul 19, 2020 11:05
[2020-07-19] MEDS ORDERED: ONDANSETRON 4MG/2ML VIAL IV PRN ×2 (11:10→11:15)
[2020-07-19] MEDS ORDERED: fentaNYL 100 MCG/2 ML INJECTION (J3010) IV PRN (11:15)
[2020-07-19] MEDS ORDERED: METOCLOPRAMIDE INJ 10MG/2ML VIAL (J2765 PER 1) IV PRN (11:15)
[2020-07-19] MEDS ORDERED: LR 1,000 ML IV SCH (11:15)
[2020-07-19] MEDS ORDERED: oxyCODONE 5MG TAB PO PRN (11:25)
[2020-07-19] MEDS ORDERED: KETOROLAC 30 MG/ML 1ML VIAL As Ordered ONE (11:51)
[2020-07-19] MEDS ORDERED: KETOROLAC 30 MG/ML 1ML VIAL IV PRN ×2 (12:00→13:25)
[2020-07-19] MEDS: traMADol 50 MG TAB PO PRN ×3 (13:13→22:20)
[2020-07-19] MEDS: LR 1,000 ML IV SCH (13:15)
[2020-07-19] MEDS: ceFAZolin SOD 1 GM in D5W MINI-BAG PLUS 50 ML IV SCH (16:10)
[2020-07-19] MEDS: KETOROLAC TROMETHAMINE 10 MG TAB PO PRN ×2 (16:11→22:19)
[2020-07-19] MEDS: ACETAMINOPHEN TAB 650MG DOSE (2X325MG) PO PRN ×2 (16:13→22:19)
[2020-07-19] MEDS ORDERED: CETIRIZINE (ZyrTEC) 10 MG TAB PO SCH (21:00)
[2020-07-20] MEDS: LR 1,000 ML IV SCH (01:01)
[2020-07-20] MEDS: ceFAZolin SOD 1 GM in D5W MINI-BAG PLUS 50 ML IV SCH ×2 (01:01→08:30)
[2020-07-20 02:00] VITALS: BP 112/71
[2020-07-20] MEDS: KETOROLAC TROMETHAMINE 10 MG TAB PO PRN ×2 (04:53→11:15)
[2020-07-20] MEDS: traMADol 50 MG TAB PO PRN ×2 (04:53→11:16)
[2020-07-20] MEDS: ACETAMINOPHEN TAB 650MG DOSE (2X325MG) PO PRN ×2 (04:54→11:15)
[2020-07-20 06:00] VITALS: BP 109/70
--- NOTE | 2020-07-20 12:04 | IPNPDOC ---
Subjective General Date Seen: Jul 20, 2020 Subject Chief Complaint/History The patient is a 45-year-old female admitted with a reason for visit of Bilateral Breast Hypertrophy. S/p BBR pod 1 Doing well. Pain controlled, no complains. Ambulating, tolerating diet. Current Medications Current Medications Current Medications Medications (Trade) Dose Ordered Sig/Yoli Route PRN Reason Start Time Stop Time Status Last Admin Dose Admin Acetaminophen (Tylenol Tab) 650 mg Q6H PRN PO MILD PAIN (PS 1-4) 07/19/20 11:10 07/20/20 11:15 Cefazolin Sodium 1 gm/Dextrose 50 ml @ 100 mls/hr Q8H IV 07/19/20 16:00 07/20/20 01:01 Cetirizine HCl (ZyrTEC) 10 mg QHS PO 07/19/20 21:00 07/19/20 20:37 Fentanyl Citrate (Sublimaze) 25 mcg Q5MP PRN IV PAIN LEVEL 5-10 07/19/20 11:15 07/19/20 13:15 DC Ketorolac Tromethamine (ToRADol) 10 mg Q6HP PRN PO MODERATE PAIN (PS 5-7) 07/19/20 11:10 07/24/20 11:09 07/20/20 11:15 Ketorolac Tromethamine (ToRADol) 30 mg ONCE PRN IV PAIN 07/19/20 12:00 07/19/20 12:29 DC 07/19/20 11:53 Ketorolac Tromethamine (ToRADol) 30 mg ONCE PRN IV PAIN 07/19/20 13:25 07/19/20 15:25 DC Lactated Ringer's 1,000 ml @ 75 mls/hr [id number] 07/19/20 11:10 07/20/20 01:01 Lactated Ringer's 1,000 ml @ 100 mls/hr Q10H IV 07/19/20 11:15 07/19/20 13:15 DC 07/19/20 11:05 Metoclopramide HCl (REGLAN INJection) 10 mg Q6HP PRN IV NAUSEA OR VOMITING 07/19/20 11:15 07/19/20 13:15 DC Ondansetron HCl (ZOFRAN INJection) 4 mg Q4H PRN IV NAUSEA OR VOMITING 07/19/20 11:10 Ondansetron HCl (ZOFRAN INJection) 4 mg Q4HP PRN IV NAUSEA OR VOMITING 07/19/20 11:15 07/19/20 13:15 DC Oxycodone HCl (Roxicodone, Oxyir) 5 mg ASDIRECTED PRN PO PAIN LEVEL 1-4 07/19/20 11:25 07/19/20 13:26 DC Tramadol HCl (Ultram) 50 mg Q4HP PRN PO MODERATE PAIN (PS 5-7) 07/19/20 11:10 07/20/20 11:16 Allergies Coded Allergies: codeine (Verified Adverse Reaction, Mild, itch, 07/19/20) Objective Physical Examination Examination GENERAL APPEARANCE:Patient seen, laying in bed, awake, alert, and oriented. Comfortable, in no acute distress. SKIN: Warm and moist. BREAST: Right and left soft, non-tender incisions intact. DONNA drains: min cc/24 hr. NAC: Viable, warm, symmetrical, mild post-op ecchymosis, no expanding hematoma. LUNGS: Clear to auscultation bilaterally. No wheezing appreciated. HEART: No chest wall abnormalities. Regular rate and rhythm with no murmurs appreciated. ABDOMEN: Abdomen is soft, non-tender, non-distended. EXTREMITIES: No edema identified. No calf tenderness. Vital Signs Vital Signs Date Time Temp Pulse Resp B/P (MAP) Pulse Ox O2 Delivery O2 Flow Rate FiO2 07/20/20 11:16 18 07/20/20 06:00 97.3 86 109/70 (83) 95 Room Air 07/19/20 11:10 12.0 I&Os I&O- Last 24 Hours up to 6 AM 07/20/20 06:00 Intake Total 3762 ml Output Total 75 ml Balance 3687 ml Impression S/p BBR Stable for discharge. Dressing changed. Rx pain management. Instructions given. F/up plastic surgery. Plan / VTE VTE Prophylaxis Ordered?: Yes MARIA GUADALUPE HOBSON DO Jul 20, 2020 12:04
[2020-07-20] MEDS ORDERED: TRAM50TA2 PO (12:08)
== END 2020-07-20 14:00 | disposition home or self-care (01) ==
LOC: M SDC 06:04 → M MS5PR 12:55 → M SDC 07-20 14:00
PROVIDERS: ATTEND Plastic Surgery Surgery of the Hand
DX: N62 Hypertrophy of breast (principal); N64.81 Ptosis of breast; K57.92 Diverticulitis of intestine, part unspecified, without perforation or abscess without bleeding; K21.9 Gastro-esophageal reflux disease without esophagitis; F41.9 Anxiety disorder, unspecified; F32.9 Major depressive disorder, single episode, unspecified; Z79.899 Other long term (current) drug therapy; Z87.891 Personal history of nicotine dependence; Z88.5 Allergy status to narcotic agent
CPT/HCPCS: 19318; 88305; 96360; 96361; C9290; J0131; J0690; J1100; J1170; J1885; J2250; J2405; J3010

== ENCOUNTER 2020-11-14 12:29 | Emergency (ER) | payer BC ==
[~2020-11-14] VITALS: Ht 149.9 cm; Wt 62.1 kg
[2020-11-14 12:29] VITALS: BP 134/78
[~2020-11-14 12:29] MED LIST changes: +CLON0.25 PO; -LR 1,000 ML IV ONE; +TRAM50TA2 PO; -ceFAZolin SOD 1 GM in D5W MINI-BAG PLUS 50 ML IV ONE
== END 2020-11-14 14:43 | disposition left against medical advice (07) ==
LOC: M ED 12:29
DX: Z53.21 Procedure and treatment not carried out due to patient leaving prior to being seen by health care provider (principal)